=== PATIENT | female | born 1940 | race Caucasian/White ===

== ENCOUNTER → 2016-09-20 | Outpatient (CLI) | payer OTHER, MEDICARE ==
[~2016-09-20] MED LIST: CHOL1TAB12 PO; MULT-506 PO
--- NOTE | 2016-09-20 13:11 | MAMMOGRAPHY REPORT ---
BILATERAL DIGITAL SCREENING MAMMOGRAM WITH CAD: 09/20/2016 CLINICAL HISTORY: Routine screening. Patient has no complaints. TECHNIQUE: Current study was also evaluated with a Computer Aided Detection (CAD) system. Bilatera l CC and MLO views were obtained. COMPARISON: Comparison is made to exams dated: 09/20/2015 mammogram, 05/04/2014 mammogram, 3 mammogram, 04/30/2012 mammogram, 04/26/2011 mammogram, and 04/24/2010 mammogram - [facility]. BREAST COMPOSITION: There are scattered areas of fibroglandular density in both breasts. FINDINGS: No suspicious masses, calcifications, or areas of architectural distortion are noted in e ither breast. There has been no significant interval change compared to prior exams. IMPRESSION: ACR BI-RADS CATEGORY 1: NEGATIVE There is no mammographic evidence of malignancy. A 1 year screening mammogram is recommended. The p atient will receive written notification of the results. Approximately 10% of breast cancers are not detected with mammography. A negative mammographic repor t should not delay biopsy if a clinically suggestive mass is present. Tri Walters M.D. /:09/20/2016 12:32:23 Youth Development Professional: Jojo DÍAZ(Asif)(Miley)(BD), [facility] letter sent: Normal 1/2 BI-RADS Code: ACR BI-RADS Category 1: Negative
== END | disposition home or self-care (01) ==
LOC: C.MAMM 11:58
PROVIDERS: ATTEND Internal Medicine Geriatric Medicine
DX: Z12.31 Encounter for screening mammogram for malignant neoplasm of breast (principal)

== ENCOUNTER → 2016-12-04 | Outpatient (CLI) | payer OTHER, MEDICARE ==
[2016-12-04 17:00] LABS: BASO % 0.3 %; BASO ABS # 0.02 K/uL (0-0.2); COMPLETE YES; EOS % 1.5 %; HEMATOCRIT 38.1 % (37-47); IG% 0.2 %; LYMPH % 27.3 %; LYMPH ABS # 1.63 K/uL (1.2-3.4); MEAN CELL VOLUME 92.3 fL (80-100); MEAN CORPUSCULAR HEMOGLOBIN 29.5 pg (25-34); MEAN PLATELET VOLUME 10.1 fL (7.4-10.4); MONO % 9.2 %; NEUT % 61.5 %; PLATELET COUNT 219 K/uL (130-400); RED BLOOD COUNT 4.13 M/uL (4.2-5.4); URINE APPEARANCE CLEAR (CLEAR); URINE BILIRUBIN NEG (NEG); URINE COLOR YELLOW; URINE EPITHELIAL CELL AUTO >30 /lpf (0-5); URINE NITRITE NEG (NEG); URINE PH 6.5 (4.5-7.5); URINE SPECIFIC GRAVITY 1.017 (1.000-1.030); UROBILINOGEN NEG (NEG); WHITE BLOOD COUNT 5.98 K/uL (4.8-10.8); ZZUR CULT IF INDIC CLEAN CATCH YES
[2016-12-04 17:02] LABS: MANUAL MICROSCOPIC REQUIRED? NO; REVIEW REQ? NO
[2016-12-04 17:11] LABS: ALT/SGPT 18 U/L (12-78); AST/SGOT 15 U/L (15-37); BLOOD UREA NITROGEN 12 mg/dl (7-18); BUN/CREATININE RATIO 14.2 (10-20); CALCIUM 9.4 mg/dl (8.5-10.1); CARBON DIOXIDE 34 mmol/L (21-32); CHLORIDE 108 mmol/L (98-107); CREATININE 0.87 mg/dl (0.60-1.20); GLUCOSE 90 mg/dl (70-99); POTASSIUM 4.3 mmol/L (3.5-5.1); SODIUM 142 mmol/L (136-145)
[2016-12-04 17:26] LABS: ALB/GLOB RATIO 1.1 (0.9-2); ALKALINE PHOSPHATASE 93 U/L (45-117); THYROID STIMULATING HORMONE 0.897 uIu/ml (0.300-4.500)
--- NOTE | 2016-12-10 13:28 | CODING QUERY MEDICAL NECESSITY ---
SUPPORTING DIAGNOSIS NEEDED A supporting diagnosis is required for the test/procedure performed on this patient in order for us to be reimbursed by the patient's insurance. Please provide a supporting diagnosis for the following test/procedure listed below next to the test name along with your signature. *If there is no additional diagnosis for this patient that would support the following test/procedure please document that below next to the test/procedure. Test(s)/Procedure(s) that require a supporting diagnosis: * VITAMIN D, 25-HYDROXY DIAGNOSIS: Provider Signature: Date: Thank you Remedios Trejo [employer] Once completed, please kindly fax back to [phone] For questions please call [phone]
== END | disposition home or self-care (01) ==
LOC: C.LABBC 15:15
PROVIDERS: ATTEND Internal Medicine Geriatric Medicine
DX: Z00.00 Encounter for general adult medical examination without abnormal findings (principal); M19.90 Unspecified osteoarthritis, unspecified site; K21.9 Gastro-esophageal reflux disease without esophagitis; G80.9 Cerebral palsy, unspecified; N28.1 Cyst of kidney, acquired

== ENCOUNTER → 2016-12-13 | Outpatient (CLI) | payer OTHER, MEDICARE | END | disposition home or self-care (01) | LOC: C.LABBC 10:15 | PROVIDERS: ATTEND Internal Medicine Geriatric Medicine | DX: R39.9 Unspecified symptoms and signs involving the genitourinary system (principal) ==

== ENCOUNTER → 2017-07-16 | Outpatient (CLI) | payer OTHER, MEDICARE ==
[2017-07-16 17:03] LABS: BLOOD UREA NITROGEN 18 mg/dl (7-18); CALCIUM 9.6 mg/dl (8.5-10.1); CARBON DIOXIDE 27 mmol/L (21-32); CREATININE 0.73 mg/dl (0.60-1.20); GLUCOSE 81 mg/dl (70-99); POTASSIUM 4.2 mmol/L (3.5-5.1); SODIUM 138 mmol/L (136-145)
[2017-07-16 17:06] LABS: CHOLESTEROL 183 mg/dl (0-200); LDL CHOLESTEROL CALCULATED 86 mg/dl
== END | disposition home or self-care (01) ==
LOC: C.LABBC 13:44
PROVIDERS: ATTEND Physician Assistant Medical
DX: Z00.00 Encounter for general adult medical examination without abnormal findings (principal); E55.9 Vitamin D deficiency, unspecified; R03.0 Elevated blood-pressure reading, without diagnosis of hypertension; K21.9 Gastro-esophageal reflux disease without esophagitis

== ENCOUNTER → 2017-08-14 | Outpatient (CLI) | payer OTHER, MEDICARE | END | disposition home or self-care (01) | LOC: C.MAMM 12:54 | PROVIDERS: ATTEND Internal Medicine Geriatric Medicine | DX: Z00.00 Encounter for general adult medical examination without abnormal findings (principal); M85.851 Other specified disorders of bone density and structure, right thigh; M85.852 Other specified disorders of bone density and structure, left thigh; M19.90 Unspecified osteoarthritis, unspecified site; G80.9 Cerebral palsy, unspecified ==

== ENCOUNTER 2019-08-15 14:53 | Inpatient (IN) ==
[2019-08-15] MEDS ORDERED: SODIUM CHLORIDE 0.9% 500 ML IV ONE (15:22)
[2019-08-15 15:32] LABS: Basophils # (auto) 0.01 K/uL (0-0.2); Basophils % (auto) 0.1 %; Eosinophils # (auto) 0.01 K/uL (0-0.5); Eosinophils % (auto) 0.1 %; Hematocrit (blood only) 41.3 % (37-47); Immature Granulocytes # (auto) 0.01 K/uL (0.00-0.02); Immature Granulocytes % (auto) 0.1 %; Lymphocytes # (auto) 0.97 K/uL (1.2-3.4); Lymphocytes % (auto) 12.4 %; Mean Corpuscular Hemoglobin 30.9 pg (25-34); Mean Corpuscular Hgb Conc 33.9 g/dL (32-36); Mean Corpuscular Volume 91.2 fL (80-100); Mean Platelet Volume 9.6 fL (7.4-10.4); Monocytes # (auto) 0.48 K/uL (0.11-0.59); Monocytes % (auto) 6.2 %; Neutrophils # (auto) 6.32 K/uL (1.4-6.5); Neutrophils % (auto) 81.1 %; Platelet Count 235 K/uL (130-400); RDW Coefficient of Variation 13.9 % (11.5-14.5); RDW Standard Deviation 46.7 fL (36.4-46.3); Red Blood Count 4.53 M/uL (4.2-5.4)
[2019-08-15 15:41] LABS: Albumin Level 4.1 gm/dl (3.4-5.0); BUN Creatinine Ratio 22.4 (10-20); Creatinine Clr Calc Pharmacy 36.7 ml/min; Est GFR (African American) 60.2; Est GFR (Non-African American) 51.9
[2019-08-15 15:49] LABS: Albumin Globulin Ratio 1.1 (0.9-2); Bilirubin,Total 0.6 mg/dl (0.2-1); Globulin 3.8 gm/dl (2.5-4.0); Total Protein 7.9 gm/dl (6.4-8.2); Troponin I 0.065 ng/ml (0-0.045)
[2019-08-15] MEDS: IOVERSOL 100ml IV PRN (15:56)
--- NOTE | 2019-08-15 15:56 | XRay Report ---
XR chest 1V portable CLINICAL HISTORY: epigastric pain COMPARISON STUDY: No previous studies for comparison. FINDINGS: The cardiac and mediastinal contours are normal. There is no evidence of focal pulmonary co nsolidation. There is no evidence of failure. No pleural effusions are visualized.[A line shadow with in the upper right paramediastinal region, likely represents visualization of the esophageal wall thr ough the trachea. There are no ancillary findings to indicate a pneumomediastinum. There is no free i ntraperitoneal air. IMPRESSION: No active disease in the chest. ACT 112: Negative or not required by law. Electronically signed by: Toño Oliva M.D. 08/15/2019 3:55 PM
--- NOTE | 2019-08-15 16:04 | Emergency Department Note ---
History of Present Illness General Chief complaint: GI Assessment Stated complaint: ACID REFLUX, CHEST PAIN Time Seen by Provider: 08/15/19 15:11 Source: patient Mode of arrival: ambulatory Limitations: no limitations History of Present Illness Maximum Pain Intensity: 3 This patient is an 78-year-old female who presents to the emergency department for evaluation of chest pain/burning. Patient reports that her symptoms have been ongoing over the past 2 weeks but have been worsening over the past few days. She states that whenever she eats or drinks anything, she develops a severe burning pain in her chest and upper abdomen. She has very little pain at rest. She states that symptoms occur with anything she has to eat or drink, including water or ice. Over the past 2 days, she has been unable to keep any thing down, including water. She reports vomiting at times. She reports decreased bowel movements, but does state that she has still been moving her bowels. She denies fevers, shortness of breath, cough or urinary symptoms. She reports a history of hysterectomy and denies any other abdominal surgeries. She rates her current discomfort a 3/10. She states that her pain is better when she does not have anything to eat or drink and worsened with any oral intake. She reports a history of cerebral palsy and hypertension, but states she is otherwise very healthy. Home Medications Home Medications Medication Instructions Recorded Confirmed Type cholecalciferol (vitamin D3) 75 3,000 units PO QAM 04/23/18 08/15/19 History mcg (3,000 unit) tablet calcium carbonate [Calcium 500] 1 tab PO QAM 05/15/18 08/15/19 History acetaminophen 500 mg tablet 1,000 mg PO TID PRN tab 03/02/19 08/15/19 History fluocinonide 0.05 % topical cream 1 appln TOP BID PRN 03/02/19 08/15/19 History Allergies Allergy/AdvReac Type Severity Reaction Status Date / Time doxycycline Allergy Unknown dizziness Verified 08/15/19 15:23 Past Med/Surg History Medical History Acute bronchitis Aortic atherosclerosis (Chronic) Arthrosis of multiple sites Bronchitis (05/15/14) Cerebral palsy, unspecified Complex renal cyst (Acute) Contact dermatitis Contact dermatitis (Resolved) COPD (chronic obstructive pulmonary disease) (Chronic) COPD exacerbation Current smoker (Acute) Emphysema of lung (Chronic) Emphysema, unspecified (Acute) Fall Foot contusion Gastroesophageal reflux disease (Acute) Knee contusion Shortness of breath Unspecified essential hypertension (Acute) Upper respiratory infection (Resolved) Vitamin D deficiency (Chronic) Xerotic eczema (Acute) Surgical History History of cataract surgery History of total hysterectomy with bilateral salpingo-oophorectomy (BSO) Family History (Updated 07/30/19 @ 11:08 by Myrna Green PA-C) Sister Stroke Mother Stroke Other Heart disease Prostate cancer Social History Preferred Language: Niuean Communication Ability: Effective Visual Impairment: No Limitations Hearing Ability: Normal Delicatessen Clerk Required: No Beliefs That Will Affect Care: None marital status: / Current Living Situation: Alone current occupational status: retired Feels Safe at Home: Yes Safety Concerns: Feels Safe At This Time Smoking Status: Current every day smoker Tobacco Type: cigarettes ; Cigarettes Per Day: 10 ; Hx Alcohol Use: No Hx Substance Use: No Childhood Exposure to Second-Hand Smoke: No caffeine: Yes Dental Care, Regularly: No Physical Activity Frequency: Does not Exercise Seatbelt Use: always Sunscreen Use: No Review of Systems A total of 10 systems reviewed and were otherwise negative Physical Exam Vital Signs Vital Signs - 24 hr 08/15/19 14:58 08/15/19 17:00 Temperature 37.1 C Temperature Source Oral Pulse Rate 100 H 71 Respiratory Rate 20 20 Respiratory Effort / Characteristics Non-Labored Spontaneous Respiratory Depth Normal Respiratory Pattern Regular Blood Pressure 152/85 H 114/87 Blood Pressure Mean 107 96 Pulse Oximetry 91 94 Oxygen Delivery Method Room Air Room Air Sepsis Recent Fever Within 48 Hours No Sepsis New/Unexplained Change in Mental Status No Sepsis Action Taken by Nursing No Action Required VITALS: Vitals are noted on the nurse's note and reviewed by myself. Vital signs stable. GENERAL: This is an 78-year-old female, in no acute distress, well-developed well-nourished. SKIN: The skin was without rashes. EARS: External auditory canals clear, tympanic membranes pearly sol without erythema or effusion bilaterally. EYES: Pupils equal round and reactive to light and accommodation. NOSE: Patent, turbinates without inflammation or discharge. MOUTH: Mucous membranes moist. Tonsils are not enlarged. Pharynx without erythema or exudate. NECK: Supple without nuchal rigidity. No lymphadenopathy. HEART: Regular rate and rhythm without murmurs gallops or rubs. LUNGS: Clear to auscultation bilaterally without wheezes, rales or rhonchi. No retractions or accessory muscle use. ABDOMEN: Positive bowel sounds x 4. Soft, minimal tenderness to palpation in the epigastric region and right upper quadrant. No guarding or rebound tenderness. NEURO: Patient was alert and oriented to person place and time. Course Consultations Consultation #1: [id number]: [facility]ations Sodium Chloride (Nss 1000ml) 1,000 mls @ 100 mls/hr IV .Q10H ANTONIO Stop: 09/14/19 18:22 Last Admin: 08/15/19 18:29 Dose: 100 mls/hr Documented by: [id number] Ioversol (Optiray 320 100ml) 92 ml IV ONCE PRN PRN Reason: Interaction Checking Stop: 08/19/19 15:55 Last Admin: 08/15/19 15:56 Dose: 92 ml Documented by: [id number] Discontinued Medications Sodium Chloride (Nss) 500 mls @ 999 mls/hr IV .Q31M ONE Stop: 08/15/19 15:52 Last Infusion: 08/15/19 15:57 Dose: 0 mls/hr Documented by: [id number] Admin: 08/15/19 15:26 Dose: 999 mls/hr Documented by: [id number] Medical Decision Making Differential Diagnosis Differential diagnosis includes esophagitis, gastritis, mass/malignancy, pancr eatitis, cholecystitis, ACS, Boerhaave syndrome, among others. Home Medications Current Medication List: was personally reviewed by me Laboratory Data Attestation: I reviewed the patient's lab results. Result diagrams: 08/15/19 15:15 08/15/19 15:15 Lab Results 08/15/19 08/15/19 Range/Units 15:15 15:15 WBC 7.80 (4.8-10.8) K/uL RBC 4.53 (4.2-5.4) M/uL Hgb 14.0 (12.0-16.0) g/dL Hct 41.3 (37-47) % MCV 91.2 (80-100) fL MCH 30.9 (25-34) pg MCHC 33.9 (32-36) g/dL RDW Std Deviation 46.7 H (36.4-46.3) fL RDW Coeff of Ruben 13.9 (11.5-14.5) % Plt Count 235 (130-400) K/uL MPV 9.6 (7.4-10.4) fL Immature Gran % (Auto) 0.1 % Neut % (Auto) 81.1 % Lymph % (Auto) 12.4 % Dixon % (Auto) 6.2 % Eos % (Auto) 0.1 % Baso % (Auto) 0.1 % Immature Gran # (Auto) 0.01 (0.00-0.02) K/uL Neut # (Auto) 6.32 (1.4-6.5) K/uL Lymph # (Auto) 0.97 L (1.2-3.4) K/uL Dixon # (Auto) 0.48 (0.11-0.59) K/uL Eos # (Auto) 0.01 (0-0.5) K/uL Baso # (Auto) 0.01 (0-0.2) K/uL Sodium 139 (136-145) mmol/L Potassium 4.0 (3.5-5.1) mmol/L Chloride 102 (98-107) mmol/L Carbon Dioxide 26 (21-32) mmol/L Anion Gap 11.0 (3-11) BUN 23 H (7-18) mg/dl Creatinine 1.02 (0.6-1.2) mg/dl Est Cr Clr Drug Dosing 36.7 ml/min Est GFR ( Amer) 60.2 Est GFR (Non-Af Amer) 51.9 BUN/Creatinine Ratio 22.4 H (10-20) Glucose 100 H (70-99) mg/dl Calcium 11.0 H (8.5-10.1) mg/dl Total Bilirubin 0.6 (0.2-1) mg/dl AST 22 (15-37) U/L ALT 19 (12-78) U/L Alkaline Phosphatase 90 (45-117) U/L Troponin I 0.065 H* (0-0.045) ng/ml Total Protein 7.9 (6.4-8.2) gm/dl Albumin 4.1 (3.4-5.0) gm/dl Globulin 3.8 (2.5-4.0) gm/dl Albumin/Globulin Ratio 1.1 (0.9-2) Lipase 80 (73-393) U/L Imaging Data Attestation: I personally reviewed and interpreted this imaging study as follows: Radiologist's Impression: XR chest 1V portable CLINICAL HISTORY: epigastric pain COMPARISON STUDY: No previous studies for comparison. FINDINGS: The cardiac and mediastinal contours are normal. There is no evidence of focal pulmonary consolidation. There is no evidence of failure. No pleural effusions are visualized.[A line shadow within the upper right paramediastinal region, likely represents visualization of the esophageal wall through the trachea. There are no ancillary findings to indicate a pneumomediastinum. There is no free intraperitoneal air. IMPRESSION: No active disease in the chest. CT abd pelvis IV con only FINDINGS: Lower chest: There is distended debris-filled distal esophagus. There is esophageal wall thickening at the gastroesophageal junction. GI consultation is recommended in follow-up to evaluate for possible GE junction mass. Liver: The contrast-enhanced liver is normal in size, contour, and attenuation. There is no intrahepatic biliary ductal dilatation. The hepatic veins and portal veins are patent. Gallbladder: Unremarkable. Spleen: Normal in size and attenuation. Pancreas: Unremarkable. Adrenal glands: Unremarkable. Kidneys: The 24 mm right renal cyst. There is no hydronephrosis. No solid renal masses are visualized. Bowel: There are no transition zones to indicate bowel obstruction. There is a lipomatous ileocecal valve. The appendix appears normal. There is no evidence of acute diverticulitis. Peritoneum: There is no intraperitoneal free air or abdominal ascites. Vasculature: The abdominal aorta is normal in course and caliber. Adenopathy: None. Pelvic viscera: The uterus appears surgically absent. 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 Arthritic changes are present within the hips. Degenerative changes are present within the cervical spine. IMPRESSION: 1. Distended debris-filled esophagus 2. Bowel wall thickening at the esophagogastric junction. Endoscopic correlation is recommended in follow-up to evaluate for a possible stricture or mass. ECG Data Attestation: I personally reviewed and interpreted this ECG as follows: Indication: + chest pain Rate (beats per minute): 77 Rhythm: + normal sinus ECG Intervals/blocks: + Normal QRS ECG ST segments: + T-wave inversions (lead III) and + Nonspecific ST abnormalities (questionable ST depression, may be related to baseline artifact) ECG Findings: + PACs Change: no significant change Additional Comments: Additional EKG was performed due to significant baseline artifact on initial EKG. This also shows a normal sinus rhythm. There do not appear to be any acute ST changes. Patient has T wave inversions in lead III which have been present in the past. Blood Pressure Blood Pressure Findings: Elevated blood pressure Blood Pressure Disposition: further management by hospitalist PATRIC Hurtado The patient is an 78-year-old female who presents today complaining of dysphasia which has been progressively worsening over the past 2 weeks. Labs revealed no leukocytosis or anemia. Patient is hypercalcemic with a calcium of 11. Otherwise no electrolyte abnormalities. Patient's troponin mildly elevated at 0.065. EKG shows no acute ischemic changes. Patient has no prior troponin for comparison and this may be a more chronic elevation for her. A CT scan of the abdomen/pelvis was performed and showed evidence of an esophageal mass/stricture causing obstruction. Patient is unable to tolerate anything p.o. and will need to stay in the hospital for further evaluation and endoscopy. The case was discussed with the [facility] hospitalist, Dr. Romo, who agreed to evaluate the patient for further care. human resources team member: Patient was placed on a route vending machine servicer throughout the duration of her stay. human resources team member showed a normal sinus rhythm with heart rate of 70 bpm. The patient was independently evaluated by Dr. Perez, who agreed with my assess ment and treatment plan. Impression & Plan Esophageal abnormality, Dysphagia, Elevated troponin Discharge Plan Visit Data *Final* Discharge Date/Time: 08/15/19 17:41 Chief Complaint: GI Assessment Stated Complaint: ACID REFLUX, CHEST PAIN ED Provider: Lamont Perez ED Midlevel Provider: Brianne Wagner Discharge Problem: Esophageal abnormality, Dysphagia, Elevated troponin Patient Disposition: Admitted As Inpatient Discharge Instructions Interventions: ED Discharge Assessment Last Done: 08/15/19 17:41 Discharge Problem: Dysphagia Qualifiers: Dysphagia type: unspecified Qualified Code(s): R13.10 - Dysphagia, unspecified
--- NOTE | 2019-08-15 16:12 | CT Scan Report ---
CT abd pelvis IV con only CLINICAL HISTORY: epigastric pain, vomiting with any food COMPARISON STUDY: 05/15/2018 TECHNIQUE: A dose lowering technique was utilized adhering to the principles of ALARA. CT DOSE: 265.25 mGy.cm FINDINGS: Lower chest: There is distended debris-filled distal esophagus. There is esophageal wall thickening a t the gastroesophageal junction. GI consultation is recommended in follow-up to evaluate for possible GE junction mass. Liver: The contrast-enhanced liver is normal in size, contour, and attenuation. There is no intrahepa tic biliary ductal dilatation. The hepatic veins and portal veins are patent. Gallbladder: Unremarkable. Spleen: Normal in size and attenuation. Pancreas: Unremarkable. Adrenal glands: Unremarkable. Kidneys: The 24 mm right renal cyst. There is no hydronephrosis. No solid renal masses are visualized . Bowel: There are no transition zones to indicate bowel obstruction. There is a lipomatous ileocecal v alve. The appendix appears normal. There is no evidence of acute diverticulitis. Peritoneum: There is no intraperitoneal free air or abdominal ascites. Vasculature: The abdominal aorta is normal in course and caliber. Adenopathy: None. Pelvic viscera: The uterus appears surgically absent. 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 Arthritic changes are present within the hips. De generative changes are present within the cervical spine. IMPRESSION: 1. Distended debris-filled esophagus 2. Bowel wall thickening at the esophagogastric junction. Endoscopic correlation is recommended in fo llow-up to evaluate for a possible stricture or mass. ACT 112: Negative or not required by law. Electronically signed by: Toño Oliva M.D. 08/15/2019 4:10 PM
--- NOTE | 2019-08-15 16:20 | Emergency Department Note ---
ED Visit Note I did evaluate and examine this patient myself. I did guide management for the patient. I agree with the PA's assessment as discussed. Please see the PAs dictation for further details. The patient has been unable to eat or drink for the past 2 days and complains of burning chest pain whenever she tries to eat or drink something. I did independently review the x-rays, twelve-lead EKG, CT scan and blood work. Her chest x-ray is unremarkable. Twelve-lead EKG shows nonspecific findings with a wavy baseline. No STEMI is present. CT scan shows obstruction of the distal esophagus possibly from a mass. Blood work is remarkable for a slightly elevated troponin. I did discuss the test results with the patient. She will be admitted for further evaluation and endoscopy as well as repeat troponins. .
--- NOTE | 2019-08-15 17:10 | History & Physical Report ---
Date of Service August 15, 2019 Assessment & Plan (1) Esophageal abnormality: Patient has been having progressive dysphagia with both solids and liquids, concerning for a lower esophageal mass. Patient will be admitted. She will be strict n.p.o. Ask GI to evaluate for possible upper endoscopy when able. (2) DEJUAN (acute kidney injury): Patient is likely having mild dehydration due to poor p.o. intake. Will hydrate with normal saline, follow laboratory work. 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 Will check PTH and ionized calcium. Will hydrate and follow labs. Consideration of CT of the chest depending on findings of endoscopy, especially if calcium level does not improve. History of Present Illness Primary Care Provider: Katy Neri PA-C This is an 78-year-old female with past medical history of cerebral palsy, GERD, and COPD that presents today complaining of dysphasia over the past 2 weeks. Patient has some mild baseline dysarthria but is otherwise good historian. Patient's main complaint is that she has been having difficulty with oral intake over the past 2 weeks. She is able to swallow but feels the food gets stuck in her lower epigastric area. She is describing some "mucus "that comes back up but has had no nausea or vomiting. She describes the pain is more of a burning, reflux type pain. She has difficulties both solids and liquids. She tells me she has tried different things but has run into the same problem. She feels this is getting slowly worse, in the past 2 days she has not been able to keep anything down at all. She has had no abdominal pain, fever, chills. She denies any weight loss. She also denies passing any blood either above or below. CT scan of the abdomen as noted below, has significant amount of food debris in the lower esophagus with with concern for mass versus a stricture. Allergies Allergy/AdvReac Type Severity Reaction Status Date / Time doxycycline Allergy Unknown dizziness Verified 08/15/19 15:23 Home Medications Home Medications Medication Instructions Recorded Confirmed Type cholecalciferol (vitamin D3) 75 3,000 units PO QAM 04/23/18 08/15/19 History mcg (3,000 unit) tablet calcium carbonate [Calcium 500] 1 tab PO QAM 05/15/18 08/15/19 History acetaminophen 500 mg tablet 1,000 mg PO TID PRN tab 03/02/19 08/15/19 History fluocinonide 0.05 % topical cream 1 appln TOP BID PRN 03/02/19 08/15/19 History Past Med/Surg History Medical History Acute bronchitis Aortic atherosclerosis (Chronic) Arthrosis of multiple sites Bronchitis (05/15/14) Cerebral palsy, unspecified Complex renal cyst (Acute) Contact dermatitis Contact dermatitis (Resolved) COPD (chronic obstructive pulmonary disease) (Chronic) COPD exacerbation Current smoker (Acute) Emphysema of lung (Chronic) Emphysema, unspecified (Acute) Fall Foot contusion Gastroesophageal reflux disease (Acute) Knee contusion Shortness of breath Unspecified essential hypertension (Acute) Upper respiratory infection (Resolved) Vitamin D deficiency (Chronic) Xerotic eczema (Acute) Surgical History History of cataract surgery History of total hysterectomy with bilateral salpingo-oophorectomy (BSO) Family History (Updated 07/30/19 @ 11:08 by Myrna Green PA-C) Sister Stroke Mother Stroke Other Heart disease Prostate cancer Social History Preferred Language: Czech Communication Ability: Effective Visual Impairment: No Limitations Hearing Ability: Normal marital status: / Current Living Situation: Alone current occupational status: retired Feels Safe at Home: Yes Smoking Status: Current every day smoker Hx Alcohol Use: No Hx Substance Use: No Childhood Exposure to Second-Hand Smoke: No caffeine: Yes Dental Care, Regularly: No Physical Activity Frequency: Does not Exercise Seatbelt Use: always Sunscreen Use: No Review of Systems Constitutional: no fever, no chills, no weakness, no weight loss and no weight gain Eyes: as per Subjective / HPI Respiratory: no cough, no chest congestion, no dyspnea and no dyspnea on exertion Cardiovascular: no chest pain, no orthopnea, no palpitations, no lightheadedness and no edema Gastrointestinal: + heartburn and + dysphagia; no abdominal pain, no nausea, no vomiting, no pain with swallowing, no constipation and no diarrhea/loose stools Genitourinary: no dysuria, no difficulty urinating, no urinary frequency, no urinary hesitancy, no urinary urgency and no flank pain Musculoskeletal: no back pain, no neck pain, no joint pain, no stiffness and no myalgia Integumentary: no rash Neurologic: no gait abnormality, no unsteadiness, no falls and no generalized weakness Physical Exam 2 Constitutional: + frail appearing and cooperative; no acute distress Mild dysarthria at baseline Neck: trachea midline, no thyromegaly Respiratory: normal respiratory effort Auscultation: lungs clear to auscultation bilaterally; no crackles, no rales, no rhonchi and no wheezes Cardiovascular: Rate/Rhythm: regular rate and regular rhythm Heart Sounds: normal S1 and normal S2 Gastrointestinal (Abdomen): Inspection/Auscultation: abdomen normal to inspection Percussion/Palpation: abdomen soft; abdomen nontender, no guarding, abdomen not rigid and no hepatosplenomegaly Skin: no rashes, warm and dry Results & Data Results & Data ([facility]) Vital Signs (Past 12 Hours) Vital Signs Temp Pulse Resp BP Pulse Ox 08/15/19 14:58 37.1 C 100 H 20 152/85 H 91 Laboratory Results WBC 7.8, hemoglobin of 14 with hematocrit of 41.3. Platelets of 235. Sodium 139, potassium 4 chloride 102, CO2 26, BUN of 23, creatinine of 1.02. This is mildly elevated from her previous laboratory work. Glucose is 100. Troponin is 0.065. Calcium is 11. LFTs are normal. UA is normal. Diagnostic Findings CT abd pelvis IV con only CLINICAL HISTORY: epigastric pain, vomiting with any food COMPARISON STUDY: 05/15/2018 TECHNIQUE: A dose lowering technique was utilized adhering to the principles of ALARA. CT DOSE: 265.25 mGy.cm FINDINGS: Lower chest: There is distended debris-filled distal esophagus. There is esophageal wall thickening at the gastroesophageal junction. GI consultation is recommended in follow-up to evaluate for possible GE junction mass. Liver: The contrast-enhanced liver is normal in size, contour, and attenuation. There is no intrahepatic biliary ductal dilatation. The hepatic veins and portal veins are patent. Gallbladder: Unremarkable. Spleen: Normal in size and attenuation. Pancreas: Unremarkable. Adrenal glands: Unremarkable. Kidneys: The 24 mm right renal cyst. There is no hydronephrosis. No solid renal masses are visualized. Bowel: There are no transition zones to indicate bowel obstruction. There is a lipomatous ileocecal valve. The appendix appears normal. There is no evidence of acute diverticulitis. Peritoneum: There is no intraperitoneal free air or abdominal ascites. Vasculature: The abdominal aorta is normal in course and caliber. Adenopathy: None. Pelvic viscera: The uterus appears surgically absent. 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 Arthritic changes are present within the hips. Degenerative changes are present within the cervical spine. IMPRESSION: 1. Distended debris-filled esophagus 2. Bowel wall thickening at the esophagogastric junction. Endoscopic correlation is recommended in follow-up to evaluate for a possible stricture or mass. --- CLINICAL HISTORY: epigastric pain COMPARISON STUDY: No previous studies for comparison. FINDINGS: The cardiac and mediastinal contours are normal. There is no evidence of focal pulmonary consolidation. There is no evidence of failure. No pleural effusions are visualized.[A line shadow within the upper right paramediastinal region, likely represents visualization of the esophageal wall through the trachea. There are no ancillary findings to indicate a pneumomediastinum. There is no free intraperitoneal air. IMPRESSION: No active disease in the chest. PG Care Time/CCT Total # of Minutes Spent Total Time Spent with Patient: Total time spent is greater than 50% in coordination of care (as documented) at patient's floor/unit and/or counseling patient: Coding Level of Care Code 16617 Initial Inpt Care Lvl 3 Diagnoses Esophageal abnormality K22.9 DEJUAN (acute kidney injury) N17.9 Hypercalcemia E83.52
[2019-08-15] MEDS ORDERED: ONDANSETRON INJ 2 MG/ML 2 ML VIAL IV PRN (18:23)
[2019-08-15] MEDS: SODIUM CHLORIDE 0.9% 1000ML 1,000 ML IV SCH (18:29)
[2019-08-15] MEDS: ENOXAPARIN INJ 40 MG/0.4 ML SYR SQ SCH (20:48)
[2019-08-15 22:45] LABS: Appearance Urine Clear (Clear); Bilirubin Urine Negative (Negative); Blood Urine Negative (Negative); Color Urine Yellow; Glucose Urine UA Negative (Negative); Ketones Urine 3+ (Negative); Leukocyte Esterase Urine Negative (Negative); Nitrite Urine Negative (Negative); Protein Urine Negative (Negative); Specific Gravity Urine > 1.045 (1.000-1.030); Urobilinogen Urine Negative (Negative)
[2019-08-16] MEDS: SODIUM CHLORIDE 0.9% 1000ML 1,000 ML IV SCH ×2 (04:59→17:52)
[2019-08-16 06:32] LABS: Basophils # (auto) 0.01 K/uL (0-0.2); Basophils % (auto) 0.2 %; Eosinophils # (auto) 0.08 K/uL (0-0.5); Eosinophils % (auto) 1.3 %; Hemoglobin 11.4 g/dL (12.0-16.0); Immature Granulocytes # (auto) 0.01 K/uL (0.00-0.02); Immature Granulocytes % (auto) 0.2 %; Lymphocytes # (auto) 1.44 K/uL (1.2-3.4); Lymphocytes % (auto) 22.9 %; Mean Corpuscular Hemoglobin 29.8 pg (25-34); Mean Corpuscular Hgb Conc 32.6 g/dL (32-36); Mean Corpuscular Volume 91.6 fL (80-100); Mean Platelet Volume 10.1 fL (7.4-10.4); Monocytes # (auto) 0.46 K/uL (0.11-0.59); Monocytes % (auto) 7.3 %; Neutrophils # (auto) 4.29 K/uL (1.4-6.5); Neutrophils % (auto) 68.1 %; Platelet Count 197 K/uL (130-400); RDW Standard Deviation 46.7 fL (36.4-46.3); Red Blood Count 3.82 M/uL (4.2-5.4); White Blood Count 6.29 K/uL (4.8-10.8)
[2019-08-16 06:55] LABS: BUN Creatinine Ratio 40.2 (10-20); Calcium 9.1 mg/dl (8.5-10.1); Creatinine Clr Calc Pharmacy 61.4 ml/min; Est GFR (African American) 99.2; Est GFR (Non-African American) 85.6; Magnesium 1.9 mg/dl (1.8-2.4); Potassium 3.6 mmol/L (3.5-5.1)
[2019-08-16] MEDS ORDERED: MoRPHine SULFATE 2 MG/ML CARP IV PRN (09:35)
--- NOTE | 2019-08-16 09:39 | Hospitalist Progress Note ---
Date of Service August 16, 2019 Assessment & Plan (1) Esophageal abnormality: Patient has been having progressive dysphagia with both solids and liquids, concerning for a lower esophageal mass. Patient will be admitted. She will be strict n.p.o. Ask GI to evaluate for possible upper endoscopy when able. Will give a low-dose IV morphine for the pain. Start IV Protonix as well. (2) DEJUAN (acute kidney injury): Patient's renal function is much improved, I do note that her glucose is only 64 this morning. I will change to D5 normal saline, reduce rate. Continue to monitor renal function. 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 PTH is normal, and calcium is much improved with hydration. We will continue to monitor. Strict n.p.o., off of calcium supplementation. Admission and Anticipated Discharge Date Admission Date: August 15, 2019 Subjective Patient having occasional, spasm-like pain in the chest. She has been strict n.p.o. The pain does pass fairly readily. She has no other symptoms including fever, chills, nausea, vomiting, or shortness of breath. I was admitted late last night, awaiting GI consultation for possible endoscopy. Physical Exam Constitutional: + frail appearing and cooperative; no acute distress Neck: trachea midline, no thyromegaly Respiratory: normal respiratory effort Auscultation: lungs clear to auscultation bilaterally; no crackles, no rales, no rhonchi and no wheezes Cardiovascular: Rate/Rhythm: regular rate and regular rhythm Heart Sounds: normal S1 and normal S2 Gastrointestinal (Abdomen): Inspection/Auscultation: abdomen normal to inspection Percussion/Palpation: abdomen soft; abdomen nontender, no guarding, abdomen not rigid and no hepatosplenomegaly Skin: no rashes, warm and dry Results & Data Results & Data ([facility]) Vital Signs (Past 12 Hours) Vital Signs Temp Pulse Pulse Resp BP Pulse Ox 08/16/19 08:00 56 L 08/16/19 07:36 37.0 C 61 18 154/72 H 95 08/16/19 04:08 36.5 C 60 18 152/67 H 93 08/16/19 00:36 55 L 08/15/19 23:30 36.9 C 62 18 126/60 93 PG Care Time/CCT Total # of Minutes Spent Total Time Spent with Patient: Total time spent is greater than 50% in coordination of care (as documented) at patient's floor/unit and/or counseling patient: Coding Level of Care Code 80564 Subseq Hosp Care Lvl 2 Diagnoses Esophageal abnormality K22.9 DEJUAN (acute kidney injury) N17.9 Hypercalcemia E83.52
[2019-08-16] MEDS: PANTOprazole 40 MG in SYRINGE 0 ML IV SCH (10:37)
--- NOTE | 2019-08-16 11:33 | Communication Note ---
Date of Service: August 16, 2019 GI brief note: 78 yo female with hx cerebral palsy, GERD and COPD here with progressive dysphagia for 2 weeks to both solids and liquids. Able to swallow her saliva, feels like food gets stuck in her lower chest. No N/v, no recent EGD. CT A/P shows thickening near the GE junction. Has not had barium esophagram nor manometry testing. Significant smoking history is noted, current daily smoker. Notes some burning pains after eating or drinking. Impression: ddx includes achalasia vs. esophagitis vs. other etiology (such as malignancy) Recs: 1.obtain barium esophagram 2.protonix 40 mg BID 3.NPO for now Thank you for allowing me to participate in the care of this patient Daryl Sage MD Gastroenterology
--- NOTE | 2019-08-16 13:19 | Electrocardiogram Report ---
Test Reason : Blood Pressure : / mmHG Vent. Rate : 077 BPM Atrial Rate : 077 BPM P-R Int : 140 ms QRS Dur : 074 ms QT Int : 366 ms P-R-T Axes : 062 000 -45 degrees QTc Int : 414 ms Poor data quality, interpretation may be adversely affected Sinus rhythm Nonspecific ST and T wave abnormality Abnormal ECG When compared with ECG of 17-MAY-2014 19:15, T wave inversion now evident in Inferior leads Confirmed by Enoc Newell ([id number]) on 08/16/2019 1:19:11 PM Referred By: SELF Confirmed By:Enoc Newell
--- NOTE | 2019-08-16 13:21 | Electrocardiogram Report ---
Test Reason : Blood Pressure : / mmHG Vent. Rate : 070 BPM Atrial Rate : 070 BPM P-R Int : 156 ms QRS Dur : 076 ms QT Int : 412 ms P-R-T Axes : 062 017 003 degrees QTc Int : 444 ms Poor data quality, interpretation may be adversely affected Sinus rhythm with Premature atrial complexes Nonspecific ST abnormality Abnormal ECG When compared with ECG of 15-AUG-2019 15:09, Premature atrial complexes are now Present Confirmed by Enoc Newell ([id number]) on 08/16/2019 1:20:52 PM Referred By: REFERRED SELF Confirmed By:Enoc Newell
[2019-08-16] MEDS: ENOXAPARIN INJ 40 MG/0.4 ML SYR SQ SCH (20:30)
--- NOTE | 2019-08-16 21:02 | Communication Note ---
Date of Service: August 16, 2019 Got notified that pt had a BSG of 58 x2. Switched fluids to NSS w/D5W @80cc/hr. Of note, last noted Na level of 142.
[2019-08-16] MEDS: D5W AND NSS 1,000 ML IV SCH (21:25)
[2019-08-17 07:24] LABS: Basophils # (auto) 0.01 K/uL (0-0.2); Basophils % (auto) 0.2 %; Hematocrit (blood only) 32.8 % (37-47); Hemoglobin 10.8 g/dL (12.0-16.0); Immature Granulocytes # (auto) 0.01 K/uL (0.00-0.02); Immature Granulocytes % (auto) 0.2 %; Lymphocytes # (auto) 1.26 K/uL (1.2-3.4); Lymphocytes % (auto) 25.4 %; Mean Corpuscular Hemoglobin 29.9 pg (25-34); Mean Corpuscular Hgb Conc 32.9 g/dL (32-36); Mean Corpuscular Volume 90.9 fL (80-100); Mean Platelet Volume 10.1 fL (7.4-10.4); Monocytes % (auto) 10.1 %; Neutrophils # (auto) 3.08 K/uL (1.4-6.5); Neutrophils % (auto) 62.1 %; Platelet Count 188 K/uL (130-400); RDW Coefficient of Variation 13.7 % (11.5-14.5); RDW Standard Deviation 45.7 fL (36.4-46.3); Red Blood Count 3.61 M/uL (4.2-5.4); White Blood Count 4.96 K/uL (4.8-10.8)
[2019-08-17] MEDS: PANTOprazole 40 MG in SYRINGE 0 ML IV SCH (07:36)
[2019-08-17 07:54] LABS: BUN Creatinine Ratio 31.6 (10-20); Calcium 8.6 mg/dl (8.5-10.1); Creatinine Clr Calc Pharmacy 62.5 ml/min; Est GFR (African American) 99.8; Est GFR (Non-African American) 86.1; Potassium 3.2 mmol/L (3.5-5.1)
[2019-08-17] MEDS: D5W AND NSS 1,000 ML IV SCH (08:47)
--- NOTE | 2019-08-17 10:00 | Fluoroscopy Report ---
FL barium swallow CLINICAL HISTORY: dysphagia, r/o mass COMPARISON STUDY: Abdomen and pelvis CT 08/15/2019. FINDINGS: Total fluoroscopy time is 0.9 minutes. 332 fluoroscopic images submitted. Suboptimal study due to patient motion and patient positioning. The mid to distal esophagus is distended and debris fi lled. There is narrowing and irregularity at the distal esophagus near the gastroesophageal junction. This maintains throughout the examination. IMPRESSION: Irregularity and narrowing at the distal esophagus near the gastroesophageal junction. T his is concerning for an esophageal mass. Endoscopy recommended for further evaluation. This was call ed/faxed to the referring physician following dictation. ACT 112: Positive. There are findings on this exam that require communication between the performing entity and the patient following Patient Test Result Information Act ([place] Act 112) guidelines. Electronically signed by: Sánchez Monzon M.D. 08/17/2019 9:58 AM
--- NOTE | 2019-08-17 10:01 | Hospitalist Progress Note ---
Date of Service August 17, 2019 Assessment & Plan (1) Esophageal abnormality: Patient continue IV morphine and IV Protonix. Await barium swallow study. Further follow-up with GI. (2) DEJUAN (acute kidney injury): Patient is now on D5 normal saline, sodium is 142. Continue to monitor. Renal function is essentially normalized. Repletion of potassium. 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 PTH is normal, and calcium is much improved with hydration. We will continue to monitor. Strict n.p.o., off of calcium supplementation. Admission and Anticipated Discharge Date Admission Date: August 15, 2019 Subjective Patient tells me she has been sleeping poorly secondary to the discomfort from her esophageal issues. GI I did leave a note in the chart yesterday but barium swallow was not ordered and will be performed this morning. Patient was also given low-dose morphine for discomfort. I do see there were issues I last night with her blood sugar and the patient is since been changed over to NSS D5W. Blood sugar this morning is 92. She is hypokalemic. Physical Exam Constitutional: cooperative; no acute distress Neck: trachea midline, no thyromegaly Respiratory: normal respiratory effort Auscultation: lungs clear to auscultation bilaterally; no crackles, no rales, no rhonchi and no wheezes Cardiovascular: Rate/Rhythm: regular rate and regular rhythm Heart Sounds: normal S1 and normal S2 Gastrointestinal (Abdomen): Inspection/Auscultation: abdomen normal to inspection Percussion/Palpation: abdomen soft; abdomen nontender, no guarding, abdomen not rigid and no hepatosplenomegaly Skin: no rashes, warm and dry Results & Data Results & Data ([facility]) Vital Signs (Past 12 Hours) Vital Signs Temp Pulse Pulse Resp BP BP Pulse Ox 08/17/19 08:00 53 L 08/17/19 07:38 36.6 C 58 L 18 162/62 H 94 08/17/19 04:13 36.8 C 58 L 18 176/49 H 94 08/17/19 03:34 48 L 08/16/19 22:52 36.4 C L 56 L 18 176/79 H 96 PG Care Time/CCT Total # of Minutes Spent Total Time Spent with Patient: Total time spent is greater than 50% in coordination of care (as documented) at patient's floor/unit and/or counseling patient: Coding Level of Care Code 16491 Subseq Hosp Care Lvl 2 Diagnoses Esophageal abnormality K22.9 DEJUAN (acute kidney injury) N17.9 Hypercalcemia E83.52
--- NOTE | 2019-08-17 10:34 | Communication Note ---
Date of Service: August 17, 2019 barium swallow results reviewed, concerning for distal esophageal obstruction/malignancy. afebrile, on IVFs. Recs: --plan for EGD tomorrow morning to further evaluate as this is a life-sustaining procedure that would significantly affect clinical management (i.e. diagnosis and management of malignancy, chemotherapy, etc.) --keep NPO post midnight, clear liquid diet today --rest as per primary team Daryl Sage MD Gastroenterology
[2019-08-17] MEDS: POTASSIUM CHLORIDE / WTR 10 MEQ/100 ML PLCT IV SCH ×2 (11:25→12:29)
[2019-08-17] MEDS: ENOXAPARIN INJ 40 MG/0.4 ML SYR SQ SCH (20:07)
[2019-08-18] MEDS: D5W AND NSS 1,000 ML IV SCH ×2 (01:26→14:13)
[2019-08-18 06:56] LABS: Basophils # (auto) 0.01 K/uL (0-0.2); Basophils % (auto) 0.2 %; Eosinophils # (auto) 0.09 K/uL (0-0.5); Eosinophils % (auto) 1.9 %; Hematocrit (blood only) 33.5 % (37-47); Hemoglobin 11.2 g/dL (12.0-16.0); Lymphocytes # (auto) 1.29 K/uL (1.2-3.4); Lymphocytes % (auto) 27.6 %; Mean Corpuscular Hemoglobin 30.2 pg (25-34); Mean Corpuscular Hgb Conc 33.4 g/dL (32-36); Mean Corpuscular Volume 90.3 fL (80-100); Mean Platelet Volume 10.1 fL (7.4-10.4); Monocytes % (auto) 10.7 %; Neutrophils # (auto) 2.79 K/uL (1.4-6.5); Neutrophils % (auto) 59.6 %; Platelet Count 184 K/uL (130-400); RDW Coefficient of Variation 13.7 % (11.5-14.5); RDW Standard Deviation 45.2 fL (36.4-46.3); Red Blood Count 3.71 M/uL (4.2-5.4); White Blood Count 4.68 K/uL (4.8-10.8)
[2019-08-18 07:35] LABS: BUN Creatinine Ratio 12.5 (10-20); Calcium 8.8 mg/dl (8.5-10.1); Creatinine Clr Calc Pharmacy 61.8 ml/min; Est GFR (African American) 101.5; Est GFR (Non-African American) 87.6; Magnesium 1.8 mg/dl (1.8-2.4); Potassium 2.9 mmol/L (3.5-5.1)
--- NOTE | 2019-08-18 07:53 | Anesthesiology Consultation ---
Date of Service August 18, 2019 Assessment & Plan Chart Review Chart Review: Acceptable Risk for Surgery Consults Requested none ASA ASA3 Proposed Anesthesia Anesthesia Type: General (b/u) and MAC Risk / Benefits Reviewed With: PT / POA / Parent / Guardian, Accepts Plan and Informed Consent Obtained History Surgery Operation Date: 08/18/19 09:00 Proposed Procedures p Esophagogastroduodenoscopy Dr. Alona Sage MD Height/Weight Height: 5 ft Weight: 56.1 kg Allergies Allergy/AdvReac Type Severity Reaction Status Date / Time doxycycline Allergy Unknown dizziness Verified 08/15/19 15:23 Medications Home Medications Medication Instructions Recorded Confirmed Last Taken cholecalciferol (vitamin D3) 75 3,000 units PO QAM 04/23/18 08/15/19 Unknown mcg (3,000 unit) tablet calcium carbonate [Calcium 500] 1 tab PO QAM 05/15/18 08/15/19 Unknown acetaminophen 500 mg tablet 1,000 mg PO TID PRN tab 03/02/19 08/15/19 Unknown fluocinonide 0.05 % topical cream 1 appln TOP BID PRN 03/02/19 08/15/19 Unknown Active Medications Generic Name Dose Route Start Last Admin Trade Name Freq PRN Reason Stop Dose Admin Enoxaparin Sodium 40 mg 08/15/19 21:00 08/17/19 20:07 Lovenox SQ 09/14/19 20:59 40 mg Q24H ANTONIO Administration Pantoprazole Sodium 40 mg/ 10 mls @ 5 mls/min 08/16/19 10:00 08/17/19 07:36 Syringe IV 09/15/19 09:59 5 mls/min DAILY ANTONIO Administration Dextrose/Sodium Chloride 1,000 mls @ 80 mls/hr 08/16/19 21:00 08/18/19 01:26 D5w And Nss IV 09/15/19 20:59 80 mls/hr .[id number] ANTONIO Administration Ioversol 92 ml 08/15/19 15:56 08/15/19 15:56 Optiray 320 100ml IV 08/19/19 15:55 92 ml ONCE PRN Administration Interaction Checking Morphine Sulfate 2 mg 08/16/19 09:35 08/16/19 16:34 Morphine Sulfate IV 08/30/19 09:34 2 mg Q6H PRN Administration Pain NPO Date Last Intake of Fluids: 08/17/19 Time Last Intake of Fluids: 21:00 Date Last Intake of Solids: 08/16/19 Time Last Intake of Solids: 00:00 Past Medical History Medical History Acute bronchitis Aortic atherosclerosis (Chronic) Arthrosis of multiple sites Bronchitis (05/15/14) Cerebral palsy, unspecified Complex renal cyst (Acute) Contact dermatitis Contact dermatitis (Resolved) COPD (chronic obstructive pulmonary disease) (Chronic) COPD exacerbation Current smoker (Acute) Emphysema of lung (Chronic) Emphysema, unspecified (Acute) Fall Foot contusion Gastroesophageal reflux disease (Acute) Knee contusion Shortness of breath Unspecified essential hypertension (Acute) Upper respiratory infection (Resolved) Vitamin D deficiency (Chronic) Xerotic eczema (Acute) Exercise / Class Metabolic Activity III < 4 Walking/Shop/Light housework Past Family History Family History Sister Stroke Mother Stroke Other Heart disease Prostate cancer Past Surgical History Surgical History History of cataract surgery History of total hysterectomy with bilateral salpingo-oophorectomy (BSO) Past Anesthesia History No Hx of Anesthesia Complications and No Family Hx of Anesthesia Complications History of PONV No Hx of PONV and No Hx of Motion Sickness Social History Smoking Status: Current every day smoker tobacco type: cigarettes Smoking cigarettes per day: 10 Hx Alcohol Use: No Hx Substance Use: No Physical Exam Vital Signs Last Vital Signs Temp 36.9 C 08/18/19 06:31 Pulse 60 08/18/19 07:13 Resp 19 08/18/19 06:31 BP 164/78 H 08/18/19 06:31 Pulse Ox 94 08/18/19 06:31 ENMT Mouth: + edentulous; no TMJ abnormality Thyromental Distance: > or= 3.5 Finger Breadths Mallampati Class: II Neck normal visual inspection and trachea midline; neck extension not limited Respiratory normal respiratory effort Auscultation: lungs clear to auscultation bilaterally Cardiovascular Rate/Rhythm: regular rate and regular rhythm Heart Sounds: no murmur Musculoskeletal Spine: normal cervical ROM Extremities: full ROM of extremities Neurologic moves all extremities Psychiatric Orientation: alert and oriented x 3 Testing Laboratory Results 08/18/19 06:12 08/18/19 06:12 Urine Color Yellow 08/15/19 22:26 Urine Appearance Clear (Clear) 08/15/19 22: Urine pH 5.0 (4.5-7.5) 08/15/19 22: Ur Specific [place] > 1.045 (1.000-1.030) H 08/15/19 22:26 Urine Protein Negative (Negative) 08/15/19 22: Urine Glucose (UA) Negative (Negative) 08/15/19 22: Urine Ketones 3+ (Negative) H 08/15/19 22:26 Urine Nitrite Negative (Negative) 08/15/19 22: Ur Leukocyte Esterase Negative (Negative) 08/15/19 22: Electrocardiogram Date: 08/15/19 Findings: + NSR @ Sinus rhythm @70bpm with Premature atrial complexes Nonspecific ST abnormality Abnormal ECG
[2019-08-18] MEDS ORDERED: PROPOFOL IV EMULSION 10 MG/ML 20 ML VIAL IV ONE ×2 (08:31→09:31)
[2019-08-18] MEDS ORDERED: LIDOCAINE HCL 2% 2 ML VIAL/AMP(20MG/ML) INFIL ONE ×2 (08:31→09:31)
[2019-08-18] MEDS ORDERED: KETAMINE HCL INJ 50 MG/ML 10 ML VIAL ONE (08:31)
--- NOTE | 2019-08-18 09:03 | Gastrointestinal Consultation ---
Date of Consultation August 18, 2019 Assessment & Plan (1) Dysphagia: Proceed with EGD as this is a life-sustaining procedure that will significantly alter/affect clinical management (i.e. chemo for malignancy/possible surgery if needed; need for timely diagnosis of malignancy) risks/benefits and procedure discussed with patient, who agrees to proceed rest as per primary team History of Present Illness Attending Physician: Agus Romo, DO 78 yo female here with progressive dysphagia to solids and liquids for the last 2 weeks. It has been getting worse, associated with burning epigastric/chest pains after eating/drinking. Never had issues like this before, she has hx copd and is a current active smoker. No significant weight loss noted. CT showed thickening at GE junction. Barium swallow this admission shows narrowing/obstruction at GE junction concerning for malignancy. labs reviewed, notable for anemia. No recent EGD. Allergies Allergy/AdvReac Type Severity Reaction Status Date / Time doxycycline Allergy Unknown dizziness Verified 08/15/19 15:23 Home Medications Home Medications Medication Instructions Recorded Confirmed Type cholecalciferol (vitamin D3) 75 3,000 units PO QAM 04/23/18 08/15/19 History mcg (3,000 unit) tablet calcium carbonate [Calcium 500] 1 tab PO QAM 05/15/18 08/15/19 History acetaminophen 500 mg tablet 1,000 mg PO TID PRN tab 03/02/19 08/15/19 History fluocinonide 0.05 % topical cream 1 appln TOP BID PRN 03/02/19 08/15/19 History Patient History Medical History Acute bronchitis Aortic atherosclerosis (Chronic) Arthrosis of multiple sites Bronchitis (05/15/14) Cerebral palsy, unspecified Complex renal cyst (Acute) Contact dermatitis Contact dermatitis (Resolved) COPD (chronic obstructive pulmonary disease) (Chronic) COPD exacerbation Current smoker (Acute) Emphysema of lung (Chronic) Emphysema, unspecified (Acute) Fall Foot contusion Gastroesophageal reflux disease (Acute) Knee contusion Shortness of breath Unspecified essential hypertension (Acute) Upper respiratory infection (Resolved) Vitamin D deficiency (Chronic) Xerotic eczema (Acute) Surgical History History of cataract surgery History of total hysterectomy with bilateral salpingo-oophorectomy (BSO) Family History Sister Stroke Mother Stroke Other Heart disease Prostate cancer Social History Preferred Language: Malay Communication Ability: Effective Visual Impairment: No Limitations Hearing Ability: Normal Cost Engineer Required: No Beliefs That Will Affect Care: None marital status: / Current Living Situation: Alone current occupational status: retired Feels Safe at Home: Yes Safety Concerns: Feels Safe At This Time Smoking Status: Current every day smoker Tobacco Type: cigarettes ; Cigarettes Per Day: 10 ; Hx Alcohol Use: No Hx Substance Use: No Childhood Exposure to Second-Hand Smoke: No caffeine: Yes Dental Care, Regularly: No Physical Activity Frequency: Does not Exercise Seatbelt Use: always Sunscreen Use: No Review of Systems Constitutional: no fever, no chills and no weight loss Eyes: as per Subjective / HPI Ear, Nose, Mouth, Throat: as per Subjective / HPI Respiratory: no dyspnea and no dyspnea on exertion Cardiovascular: no chest pain and no palpitations Gastrointestinal: as per Subjective / HPI Musculoskeletal: no joint pain and no swelling Integumentary: no rash and no lesions Neurologic: no numbness and no paresthesia Psychiatric: no depression and no anxiety Endocrine: no fatigue Hematologic / Lymphatic: no easy bleeding and no easy bruising Physical Exam Constitutional: WD/WN, vitals as above Eyes: EOM intact bilaterally Neck: normal visual inspection Respiratory: normal respiratory effort, lungs clear to auscultation Cardiovascular: RRR, no murmur, no edema Gastrointestinal (Abdomen): Inspection/Auscultation: abdomen normal to inspection; abdomen not distended Percussion/Palpation: abdomen soft; abdomen nontender and no hepatosplenomegaly Musculoskeletal: Extremities: no cyanosis Gait: normal gait Skin: no rashes, warm and dry Neurologic: moves all extremities Psychiatric: A+Ox3, euthymic affect Results & Data ([facility]) Vital Signs (Past 12 Hours) Vital Signs Temp Pulse Pulse Resp BP BP Pulse Ox 08/18/19 07:13 60 08/18/19 06:31 36.9 C 53 L 19 164/78 H 94 08/18/19 02:37 36.7 C 53 L 19 169/66 H 93 08/18/19 01:43 50 L 04/14/20 22:58 36.8 C 53 L 19 181/73 H 96 PG Care Time/CCT Total # of Minutes Spent Total Time Spent with Patient: Total time spent is greater than 50% in coordination of care (as documented) at patient's floor/unit and/or counseling patient: Coding Level of Care Code 20559 Initial Inpt Care Lvl 3 Diagnoses Dysphagia R13.10 Dysphagia type: unspecified (1) Dysphagia Dysphagia type: unspecified Qualified Code(s): R13.10 - Dysphagia, unspecified
--- NOTE | 2019-08-18 09:51 | GI REPORT ---
Patient Name: Merly Lares Procedure Date: 08/18/2019 8:15 AM Date of : 1940 Admit Type: Inpatient Age: 78 Gender: Female Attending MD: Daryl Sage MD Procedure: Upper GI endoscopy Providers: Daryl Sage MD Referring MD: Katy Neri Indications: Dysphagia, Abnormal CT of the GI tract, Endoscopy to confirm suspected neoplastic lesion of the esophagus seen on previous imaging study, Endoscopy to confirm esophageal obstruction that was demonstrated on previous imaging study Medicines: Monitored Anesthesia Care Complications: No immediate complications. Estimated blood loss: None. Estimated Blood Loss: Estimated blood loss: none. Procedure: Pre-Anesthesia Assessment: - Prior Anticoagulants: The patient has taken no previous anticoagulant or antiplatelet agents. - ASA Grade Assessment: III - A patient with severe systemic disease. After obtaining informed consent, the endoscope was passed under direct vision. Throughout the procedure, the patient's blood pressure, pulse, and oxygen saturations were monitored continuously. The Scope was introduced through the mouth, and advanced to the second part of duodenum. The upper GI endoscopy was accomplished without difficulty. The patient tolerated the procedure well. Findings: Moderate mucosal changes characterized by friability (with contact bleeding), granularity and inflammation were found at the gastroesophageal junction concerning for malignancy. Biopsies were taken with a cold forceps for histology. Estimated blood loss: none. Food was found in the middle third of the esophagus. Removal of food was accomplished via [employer]. No obvious stenosis nor stricture was noted. Localized mild inflammation characterized by erythema was found in the gastric antrum. The duodenal bulb and second portion of the duodenum were normal. Estimated blood loss: none. A medium-sized hiatal hernia was present. Impression: - Friable (with contact bleeding), granular, inflamed mucosa in the esophagus. Biopsied. - Food in the middle third of the esophagus. Removal was successful. - Gastritis. - Normal duodenal bulb and second portion of the duodenum. Recommendation: - [facility]. - NPO today. - Await pathology results. -recommend speech and swallow evaluation, NPO until then --rest as per primary team Daryl Sage MD 08/18/2019 9:51:06 AM This report has been signed electronically. Note Initiated On: 08/18/2019 8:15 AM Number of Addenda: 0 I attest to the content of the Intraoperative Record and orders documented therein, exceptions below {[id number]}
--- NOTE | 2019-08-18 09:53 | Communication Note ---
Date of Service: August 18, 2019 GI brief procedure note EGD Findings: food contents in mid esophagus-distal esophagus, removed. abnormal friable mucosa in the distal esophagus concerning for possible malignancy, biopsied. Recs: NPO await path results supportive care speech and swallow evaluation likely will need esophageal manometry and upper EUS of GE junction as an outpatient if biopsies negative Daryl Sage MD Gastroenterology
--- NOTE | 2019-08-18 10:35 | Hospitalist Progress Note ---
Date of Service August 18, 2019 Assessment & Plan (1) Esophageal abnormality: Patient continue IV morphine and IV Protonix. EGD results as noted by gastroenterology. Is recommending clear liquid diet after a speech evaluation which we will order. Await biopsy results. If patient is intolerant of any food, will need to discuss possible terms of nutrition prior to discharge. (2) DEJUAN (acute kidney injury): Patient is now on D5 normal saline, sodium remained stable at 42. Potassium has dropped to 2.9, even with IV repletion yesterday. Will give further K riders today,change IVF to D5 1/2NS with 20mEq KCl. We will continue to monitor. Magnesium is 1.8. 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 Calcium is now down to 8.8 which is normal. I will continue to monitor with IV fluids. Admission and Anticipated Discharge Date Admission Date: August 15, 2019 Subjective Patient seen and examined, she tells me she continues to have some pain and burning in her esophagus. Later this morning she had endoscopy as previously scheduled. I did speak to the photogrammetric engineer post procedure. He told me that there was significant amount of food debris along with a very friable mucosa at the GE junction only. There is also a significant hiatal hernia. Biopsies were taken and are currently pending. Physical Exam Constitutional: cooperative; no acute distress Neck: trachea midline, no thyromegaly Respiratory: normal respiratory effort Auscultation: lungs clear to auscultation bilaterally; no crackles, no rales, no rhonchi and no wheezes Cardiovascular: Rate/Rhythm: regular rate and regular rhythm Heart Sounds: normal S1 and normal S2 Gastrointestinal (Abdomen): Inspection/Auscultation: abdomen normal to inspection Percussion/Palpation: abdomen soft; abdomen nontender, no guarding, abdomen not rigid and no hepatosplenomegaly Skin: no rashes, warm and dry Results & Data Results & Data ([facility]) Vital Signs (Past 12 Hours) Vital Signs Temp Pulse Pulse Resp BP BP Pulse Ox 08/18/19 10:06 59 L 18 183/72 H 98 08/18/19 09:51 63 18 182/73 H 98 08/18/19 09:36 57 L 22 175/56 H 100 08/18/19 07:13 60 08/18/19 06:31 36.9 C 53 L 19 164/78 H 94 08/18/19 02:37 36.7 C 53 L 19 169/66 H 93 08/18/19 01:43 50 L 08/17/19 22:58 36.8 C 53 L 19 181/73 H 96 PG Care Time/CCT Total # of Minutes Spent Total Time Spent with Patient: Total time spent is greater than 50% in coordination of care (as documented) at patient's floor/unit and/or counseling patient: Coding Level of Care Code 94904 Subseq Hosp Care Lvl 2 Diagnoses Esophageal abnormality K22.9 DEJUAN (acute kidney injury) N17.9 Hypercalcemia E83.52
[2019-08-18] MEDS: PANTOprazole 40 MG in SYRINGE 0 ML IV SCH (10:44)
[2019-08-18] MEDS: D5W AND 1/2NSS + 20MEQ KCL 20 MEQ/1,000 ML BAG IV SCH ×2 (11:23→20:50)
--- NOTE | 2019-08-18 11:34 | Anesthesiology Progress Note ---
Date of Service August 18, 2019 Anesthesia Post Procedure Vital Signs Vital Signs: Temp Pulse Pulse Resp BP BP Pulse Ox 08/18/19 11:05 36.6 C 51 L 16 175/73 H 98 08/18/19 10:35 36.6 C 50 L 18 180/67 H 92 08/18/19 10:06 59 L 18 183/72 H 98 08/18/19 09:51 63 18 182/73 H 98 08/18/19 09:36 57 L 22 175/56 H 100 08/18/19 07:13 60 08/18/19 06:31 36.9 C 53 L 19 164/78 H 94 08/18/19 02:37 36.7 C 53 L 19 169/66 H 93 08/18/19 01:43 50 L 08/17/19 22:58 36.8 C 53 L 19 181/73 H 96 08/17/19 19:17 36.8 C 59 L 18 154/79 H 95 08/17/19 16:38 56 L 08/17/19 15:42 36.4 C L 56 L 18 144/76 H 94 08/17/19 12:00 62 08/17/19 11:45 36.8 C 58 L 18 179/65 H 96 Transfer of Care Handoff Completed per policy Notes Mental Status: alert / awake / arousable and participated in evaluation Nausea / Vomiting: adequately controlled Pain: adequately controlled Airway Patency, RR, SpO2: stable & adequate BP & HR: stable & adequate Hydration State: stable & adequate Anesthetic Complications: no major complications apparent and Pt Satisfied with anesthetic care
[2019-08-18] MEDS ORDERED: POTASSIUM CHLORIDE / WTR 10 MEQ/100 ML PLCT IV SCH (12:30)
[2019-08-18] MEDS ORDERED: Nursing to Pharmacy Communication ONE (13:18)
[2019-08-18] MEDS ORDERED: POTASSIUM CHLORIDE 20 MEQ/15 ML UDC PO SCH (13:45)
[2019-08-18] MEDS: ENOXAPARIN INJ 40 MG/0.4 ML SYR SQ SCH (20:50)
[2019-08-19] MEDS: D5W AND 1/2NSS + 20MEQ KCL 20 MEQ/1,000 ML BAG IV SCH ×2 (06:56→17:31)
[2019-08-19 07:00] LABS: Basophils # (auto) 0.02 K/uL (0-0.2); Basophils % (auto) 0.4 %; Eosinophils # (auto) 0.12 K/uL (0-0.5); Eosinophils % (auto) 2.5 %; Hematocrit (blood only) 32.6 % (37-47); Immature Granulocytes # (auto) 0.01 K/uL (0.00-0.02); Immature Granulocytes % (auto) 0.2 %; Lymphocytes # (auto) 1.59 K/uL (1.2-3.4); Lymphocytes % (auto) 32.9 %; Mean Corpuscular Hemoglobin 30.6 pg (25-34); Mean Corpuscular Hgb Conc 33.7 g/dL (32-36); Mean Corpuscular Volume 90.8 fL (80-100); Mean Platelet Volume 10.1 fL (7.4-10.4); Monocytes # (auto) 0.53 K/uL (0.11-0.59); Neutrophils # (auto) 2.57 K/uL (1.4-6.5); Platelet Count 169 K/uL (130-400); RDW Coefficient of Variation 13.9 % (11.5-14.5); RDW Standard Deviation 46.6 fL (36.4-46.3); Red Blood Count 3.59 M/uL (4.2-5.4); White Blood Count 4.84 K/uL (4.8-10.8)
[2019-08-19 07:36] LABS: BUN Creatinine Ratio 5.9 (10-20); Calcium 8.6 mg/dl (8.5-10.1); Creatinine Clr Calc Pharmacy 58.6 ml/min; Est GFR (African American) 99.8; Est GFR (Non-African American) 86.1; Potassium 3.5 mmol/L (3.5-5.1)
[2019-08-19] MEDS: PANTOprazole 40 MG in SYRINGE 0 ML IV SCH (07:55)
--- NOTE | 2019-08-19 11:44 | Hospitalist Progress Note ---
Date of Service August 19, 2019 Assessment & Plan (1) Esophageal abnormality: EGD concerning for cancer. path pending. CT chest for staging. doing well with clear liquids - considering advance to full liquids for more nutrients/calories but will wait on further input from GI and speech to ensure there's no reason to remain at clears only (liquids certainly given esophageal mass and prior dysphagia, but would want to advance if possible) (2) DEJUAN (acute kidney injury): improved. continue IV fluids until PO intake clearly adequate to maintain hydration hypokalemia - improved w repletion (3) Hypercalcemia: highly likely to have been dehydration and calcium supplementation - fortunately has normalized. certainly w presumed new dx cancer this would be concerning - BUT no evidence of bony mets thus far. waiting on above noted CT (4) Current smoker: (5) DVT prophylaxis: lovenox (6) Discharge planning issues: still acute care while working on dx and nutrition; anticipate home once able Admission and Anticipated Discharge Date Admission Date: August 15, 2019 Subjective feeling better than yesterday. notes that she ate peanut butter and crackers last night (apparently of her own volition?) and that really made her feel lousy for a while - burning/mucous/chest discomfort --> but then after several hours that has felt better. currently none. on clears and tolerating well - with clears no chest discomfort no sob no mucous etc. relates HPI from admission of dysphagia and weight loss (~15-20lbs) no sob. no f/c/s. understandably anxious about her current situation but no other current complaints. Review of Systems Review of Systems: All systems reviewed & are unremarkable except as noted in HPI & below Physical Exam Physical Exam: gen aao pleasant nad heent nc at mmm speech somewhat dysarthric breathing unlabored no accessory muscles good effort skin no rashes no pallor or icterus neuro no focal deficits noted Results & Data Results & Data ([facility]) Vital Signs (Past 12 Hours) Vital Signs Temp Pulse Pulse Resp BP Pulse Ox 08/19/19 10:58 97.7 F 57 L 16 112/70 95 08/19/19 06:59 98.2 F 66 20 169/75 H 96 08/19/19 06:58 55 L 08/19/19 04:20 98.2 F 62 19 151/70 H 95 08/19/19 00:15 61 PG Care Time/CCT Total # of Minutes Spent Total Time Spent with Patient: Total time spent is greater than 50% in coordination of care (as documented) at patient's floor/unit and/or counseling patient: Coding Level of Care Code 57372 Subseq Hosp Care Lvl 3 Diagnoses Esophageal abnormality K22.9 DEJUAN (acute kidney injury) N17.9 Hypercalcemia E83.52 Current smoker F17.200 DVT prophylaxis Z29.9 Discharge planning issues Z02.9
[2019-08-19] MEDS: IOVERSOL 100ml IV PRN (13:07)
--- NOTE | 2019-08-19 13:30 | CT Scan Report ---
CHEST CT WITH CONTRAST CT DOSE: 368.22 mGy.cm HISTORY: esophageal mass, eval for ?adenopathy TECHNIQUE: Multiaxial CT images of the chest were performed following the intravenous administration of contrast. A dose lowering technique was utilized adhering to the principles of ALARA. COMPARISON: Abdomen and pelvis CT 08/15/2019. FINDINGS: There is again noted a distended and debris filled esophagus, unchanged. There is abnormal thickening at the distal esophagus/gastroesophageal junction. This is concerning for an esophageal ma ss. There is a single prominent enhancing gastroesophageal lymph node on image 246 measuring 9 x 6 mm . The visualized liver and spleen are unremarkable. No hilar lymphadenopathy. A few prominent right p aratracheal and subcarinal lymph nodes are noted. Dominant paratracheal lymph node measures 8 mm in s hort axis diameter. Therefore, these do not meet CT criteria for pathologic involvement at this time. No axillary lymphadenopathy. No pleural or pericardial effusions. The mediastinal vascular structure s are within normal limits. No suspicious lytic or blastic osseous lesions. No pneumothorax. The cent ral airways are patent. Punctate calcified granuloma within the right upper lobe posteriorly. No foca l lung consolidations to suggest pneumonia. No suspicious pulmonary nodules. IMPRESSION: 1. Abnormal thickening at the distal esophagus/gastroesophageal junction resulting in a distended and debris filled esophagus. This remains unchanged and is concerning for an esophageal mass. 2. A single prominent gastroesophageal lymph node measuring 9 x 6 mm. Follow-up PET/CT should be cons idered to assess for metastatic disease. ACT 112: Negative or not required by law. Electronically signed by: Sánchez Monzon M.D. 08/19/2019 1:29 PM
[2019-08-19] MEDS: ENOXAPARIN INJ 40 MG/0.4 ML SYR SQ SCH (21:14)
[2019-08-20] MEDS: D5W AND 1/2NSS + 20MEQ KCL 20 MEQ/1,000 ML BAG IV SCH ×2 (04:13→14:31)
[2019-08-20] MEDS: PANTOprazole 40 MG TAB PO SCH (08:22)
--- NOTE | 2019-08-20 11:15 | Communication Note ---
Date of Service: August 20, 2019 GI brief note: CT chest shows esoph thickening and findings concerning for malignancy. prominent GE junction lymph node is noted as well. pending path results from EGD wtih biopsies, also pending PET scan and thoracic surgery eval. Pending speech and swallow eval. currently on clear liquid diet. Impression: likely esophageal malignancy vs. metastasis Recs: --continue clears for now until evaluated by speech and swallow team; would strongly caution against solid food until definitive diagnosis is reached regarding possible malignancy (i.e. path and PET CT results are back) --f/u path results from EGD --agree with obtaining PET scan and thoracic surgery eval --will likely need upper EUS to assist in staging for malignancy if confirmed, can be done inpatient vs. outpatient Daryl Sage MD Gastroenterology
--- NOTE | 2019-08-20 13:16 | Consultation Report ---
DATE OF CONSULTATION: 08/20/2019 REASON FOR CONSULTATION: Adenocarcinoma of GE junction. HISTORY OF PRESENT ILLNESS: This is a very sweet 78-year-old female who lives alone and is very hard of hearing. The patient presented with a food impaction, underwent an endoscopy by Dr. Daryl Sage. This was performed 2 days ago on 08/18/2019 and the patient interestingly enough had a mid esophageal food bolus, but her esophagus looked good in this area. Unfortunately, it appears that she has a mass and hold up of dye at her GE junction. She is feeling much better since the food bolus was removed. She is tolerating liquids very well. She also has no pain now. I was asked to evaluate her to assess her as a surgical candidate. The patient states that she has not really had trouble except for the last 3 weeks or so with swallowing. She denied really any weight changes. She states that she has had some pain with the food impaction, but now this is improved. She is very pleased that she is able to swallow liquids now. She denies hematemesis or vomiting. PAST MEDICAL HISTORY: 1. Decreased hearing acuity. 2. Chronic obstructive pulmonary disease. 3. History of cigarette smoking. 4. Gastroesophageal reflux disease. 5. Hypertension. 6. Vitamin D deficiency. PAST SURGICAL HISTORY: 1. 2, para 2, abortus 0. 2. MARQUEZ-BSO. 3. Cataract extraction. MEDICATIONS: There are very few. ALLERGIES: DOXYCYCLINE CAUSES DIZZINESS. SOCIAL HISTORY: The patient is . She lives alone. She has 2 sons and 3 grandchildren. FAMILY MEDICAL HISTORY: The patient's mother and her sister suffered cerebrovascular accidents. There is also a history of prostate cancer on her father's side of the family with coronary artery disease. REVIEW OF SYSTEMS: The patient denies weight loss. She has had no productive cough, no fevers and no palpitations or chest pain, although she did have some epigastric pain until her food bolus was removed. She does have a history of reflux. She denied nausea, vomiting, or diarrhea. She had no hematemesis or hemoptysis. She denies palpitations. She has no symptoms. She denies any peripheral edema or joint effusions. Other than her decreased hearing acuity, which is chronic, she has had no neurologic symptoms. PHYSICAL EXAMINATION: GENERAL: This is a short female who is awake, alert and oriented. She is quite hard of hearing. HEENT: Her extraocular movements are intact. Sclerae are anicteric. Her tongue is a bit dark, but she has no obvious lesions and she is edentulous. NECK: Supple. She has no cervical or supraclavicular lymphadenopathy or neck vein distention. She is actually moving air well without wheezing or rhonchi. HEART: She has a regular rate and rhythm of her heart. ABDOMEN: Soft, nontender and I really do not feel any masses or tenderness. EXTREMITIES: She has no peripheral edema. She does have palpable posterior tibialis pulses. She has no joint effusions. NEUROLOGIC: She is intact, except she is quite hard of hearing. ASSESSMENT AND PLAN: Adenocarcinoma of gastroesophageal junction. I have discussed this case with Dr. Franki Mix. The patient needs to be worked up with an endoscopic ultrasound for staging as well as the PET scan. I would also have cardiology, radiation oncology and pulmonary evaluate for the suitability for trimodality therapy. This 78-year-old female who lives alone, would have a tough time tolerating trimodality therapy with radiation, chemotherapy followed by surgery. I would have her evaluated by the oncologist. If she responds well to chemotherapy and radiation, then there is a possibility she would be a candidate, although I think that her operative risk after chemotherapy and radiation would be significant. [facility]
--- NOTE | 2019-08-20 17:42 | Hospitalist Progress Note ---
Date of Service August 20, 2019 Assessment & Plan (1) Esophageal abnormality: adenocarcinoma -PET being scheduled for adam as outpt -EUS / Bx node on 08/22 -thoracic surgery input appreciated - will ask for cardio and pulm evals if she appears to be surgical candidate as it relates to the cancer (ie if node benign, PET not concerning beyond esophagus) (2) Malnutrition: appears to be acute moderate to severe protein/calorie as evidenced by 15-20lbs weight loss in short order. -caused both by cancer itself but also (probably moreso) by dysphagia from the malignancy -full liquid diet; await further input from apprentice lineman third step but appears that she would probably do well on ~1300 cassi/day, probably ~2-3L fluid intake - likely quite feasible (3) DEJUAN (acute kidney injury): improved. will cautiously stop IVF hypokalemia - improved w repletion (4) Hypercalcemia: highly likely to have been dehydration and calcium supplementation - fortunately has normalized. certainly w presumed new dx cancer this would be concerning - BUT no evidence of bony mets thus far. waiting on above noted CT (5) Current smoker: hasn't smoked since admission, encouraged to stop (6) DVT prophylaxis: lovenox (7) Discharge planning issues: still acute care while working on dx and nutrition; anticipate home once able - but lives at home alone, family would like her to live with them at least in the early part of this - which seems quite reasonable for her to have more of a support system right now. Admission and Anticipated Discharge Date Admission Date: August 15, 2019 Subjective feeling ok - just stressed and overwhelmed. discussed current w/u extensively and discussed probable treatment options but wtih the abstractor that right now things are very much "work in progress" pending further w/u. discussed that we would also be here to try to guide her through treatment options once plans become more clear. d/w thoracic surgery - input appreciated called ARYA rinaldi [phone] - >20mins call updated and answering all questions to the best of my ability pt tolerating full liquid diet well no pain - except for one very brief episode of pain that went away quickly - nothing really sticking or mucous like before. otherwise no new issues or complaints. Review of Systems Review of Systems: All systems reviewed & are unremarkable except as noted in HPI & below Physical Exam Physical Exam: gen aao pleasant nad heent nc at mmm breathing unlabored no accessory muscles good effort skin no rashes no pallor or ictreus neuro no focal deficits except chronic dysarthria Results & Data Results & Data ([facility]) Vital Signs (Past 12 Hours) Vital Signs Temp Pulse Pulse Resp BP Pulse Ox 08/20/19 15:51 98.2 F 58 L 18 133/55 L 95 08/20/19 15:40 60 08/20/19 12:00 97.5 F L 60 18 126/73 97 08/20/19 08:00 52 L 08/20/19 07:28 97.2 F L 51 L 20 145/78 H 92 08/20/19 06:02 52 L PG Care Time/CCT Total # of Minutes Spent Total Time Spent with Patient: Total time spent is greater than 50% in coordination of care (as documented) at patient's floor/unit and/or counseling patient: Coding Level of Care Code 32356 Subseq Hosp Care Lvl 3 Diagnoses Esophageal abnormality K22.9 Malnutrition E46 DEJUAN (acute kidney injury) N17.9 Hypercalcemia E83.52 Current smoker F17.200 DVT prophylaxis Z29.9 Discharge planning issues Z02.9
[2019-08-20] MEDS: ENOXAPARIN INJ 40 MG/0.4 ML SYR SQ SCH (20:28)
[2019-08-21] MEDS: PANTOprazole 40 MG TAB PO SCH (07:44)
[2019-08-21 08:24] LABS: Creatinine Clr Calc Pharmacy 58.9 ml/min; Est GFR (African American) 99.8; Est GFR (Non-African American) 86.1
--- NOTE | 2019-08-21 08:44 | Gastroenterology Progress Note ---
Date of Service August 21, 2019 Assessment & Plan Admission and Anticipated Discharge Date Admission Date: August 15, 2019 Patient with esophageal adenocarcinoma likely arising from the gastroesophageal junction. Upper endoscopy with esophageal stent placement has been requested in addition to endoscopic ultrasound. We are planning to proceed with these examinations on Friday. Recommendations Liquid only diet N.p.o. on Friday night EGD with EUS planned for Friday Please call with any questions or concerns over the weekend Subjective The patient notes she is able to swallow liquids without much difficulty. She notes that she has trouble with any foods that contain consistency such as yogurts or solid material. On discussion she has had symptoms which have been ongoing for many months and was recently found to have evidence of esophageal adenocarcinoma by . Upper endoscopy with esophageal stent placement and endoscopic ultrasound has been requested by her regular GI provider. Review of Systems Constitutional: + malaise; no sweats Eyes: no diplopia Ear, Nose, Mouth, Throat: no foul smell and no facial pain Respiratory: no hemoptysis Cardiovascular: no chest pain with activity Gastrointestinal: no abdominal pain, no bloating, no nausea and no pain with swallowing Physical Exam Constitutional: WD/WN, vitals as above Neck: trachea midline, no thyromegaly Respiratory: no respiratory distress and no labored breathing Cardiovascular: Rate/Rhythm: regular rate Gastrointestinal (Abdomen): Inspection/Auscultation: abdomen normal to inspection Results & Data ([facility]) Vital Signs (Past 12 Hours) Vital Signs Temp Pulse Pulse Resp BP BP Pulse Ox 08/21/19 07:19 36.5 C 61 18 126/64 95 08/21/19 03:10 36.6 C 54 L 20 162/73 H 92 08/20/19 23:46 61 08/20/19 22:46 37.0 C 60 17 155/71 H 96 Laboratory Results Laboratory Results - last 24 hr 08/21/19 07:34 Creatinine 0.60 Est Cr Clr Drug Dosing 58.9 Est GFR ( Amer) 99.8 Est GFR (Non-Af Amer) 86.1 Case #: [id number] Collected: 08/18/19 Received: 08/18/19 Copies To Daryl Sage MD, Kenneth A., DO FINAL DIAGNOSIS A. ESOPHAGUS, GASTROESOPHAGEAL JUNCTION, BIOPSIES: 1. ADENOCARCINOMA. SEE MICROSCOPIC DESCRIPTION. 2. ACTIVE ESOPHAGITIS. 3. DEBRIS CONSISTENT WITH FOOD MATERIAL. B. ESOPHAGUS, MASS, BIOPSIES: 1. FRAGMENTS OF DEBRIS CONSISTENT WITH FOOD MATERIAL. 2. NO INFLAMMATORY OR NEOPLASTIC PROCESS IDENTIFIED. SEE MICROSCOPIC DESCRIPT Diagnostic Findings CT abd pelvis IV con only CLINICAL HISTORY: epigastric pain, vomiting with any food COMPARISON STUDY: 05/15/2018 TECHNIQUE: A dose lowering technique was utilized adhering to the principles of ALARA. CT DOSE: 265.25 mGy.cm FINDINGS: Lower chest: There is distended debris-filled distal esophagus. There is esophageal wall thickening at the gastroesophageal junction. GI consultation is recommended in follow-up to evaluate for possible GE junction mass. Liver: The contrast-enhanced liver is normal in size, contour, and attenuation. There is no intrahepatic biliary ductal dilatation. The hepatic veins and portal veins are patent. Gallbladder: Unremarkable. Spleen: Normal in size and attenuation. Pancreas: Unremarkable. Adrenal glands: Unremarkable. Kidneys: The 24 mm right renal cyst. There is no hydronephrosis. No solid renal masses are visualized. Bowel: There are no transition zones to indicate bowel obstruction. There is a lipomatous ileocecal valve. The appendix appears normal. There is no evidence of acute diverticulitis. Peritoneum: There is no intraperitoneal free air or abdominal ascites. Vasculature: The abdominal aorta is normal in course and caliber. Adenopathy: None. Pelvic viscera: The uterus appears surgically absent. 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 Arthritic changes are present within the hips. Degenerative changes are present within the cervical spine. IMPRESSION: 1. Distended debris-filled esophagus 2. Bowel wall thickening at the esophagogastric junction. Endoscopic correlation is recommended in follow-up to evaluate for a possible stricture or mass. CHEST CT WITH CONTRAST CT DOSE: 368.22 mGy.cm HISTORY: esophageal mass, eval for ?adenopathy TECHNIQUE: Multiaxial CT images of the chest were performed following the int ravenous administration of contrast. A dose lowering technique was utilized adhering to the principles of ALARA. COMPARISON: Abdomen and pelvis CT 08/15/2019. FINDINGS: There is again noted a distended and debris filled esophagus, unchanged. There is abnormal thickening at the distal esophagus/gastroesophageal junction. This is concerning for an esophageal mass. There is a single prominent enhancing gastroesophageal lymph node on image 246 measuring 9 x 6 mm. The visualized liver and spleen are unremarkable. No hilar lymphadenopathy. A few prominent right paratracheal and subcarinal lymph nodes are noted. Dominant paratracheal lymph node measures 8 mm in short axis diameter. Therefore, these do not meet CT criteria for pathologic involvement at this time. No axillary lymphadenopathy. No pleural or pericardial effusions. The mediastinal vascular structures are within normal limits. No suspicious lytic or blastic osseous lesions. No pneumothorax. The central airways are patent. Punctate calcified granuloma within the right upper lobe posteriorly. No focal lung consolidations to suggest pneumonia. No suspicious pulmonary nodules. IMPRESSION: 1. Abnormal thickening at the distal esophagus/gastroesophageal junction resulting in a distended and debris filled esophagus. This remains unchanged and is concerning for an esophageal mass. 2. A single prominent gastroesophageal lymph node measuring 9 x 6 mm. Follow-up PET/CT should be considered to assess for metastatic disease.
--- NOTE | 2019-08-21 11:50 | Progress Notes ---
DATE: 08/21/2019 The patient is sitting up today. She had some difficulty swallowing today. She stated she swallowed some liquids and a soft diet and regurgitated it back. She had some mild midsternal chest pain. We discussed the fact that this is a cancer. She was asking about surgery; however, she needs to be worked up more. On 08/23/2019, Dr. Pedro Luis Spring is going to perform an endoscopic ultrasound and biopsy the lymph nodes for staging and to assess the tumor stage. I doubt this patient is a candidate for a straight up surgery; however, we will get the PET scan and the endoscopic ultrasound and know for sure.
--- NOTE | 2019-08-21 14:02 | Hospitalist Progress Note ---
Date of Service August 21, 2019 Assessment & Plan (1) Esophageal abnormality: adenocarcinoma -PET being scheduled for adam as outpt -EUS / Bx node on 08/22 (appears esophageal stenting will be attempted then as well - which would hopefully help w dysphagia) -thoracic surgery input appreciated - will ask for cardio and pulm evals if she appears to be surgical candidate as it relates to the cancer (ie if node benign, PET not concerning beyond esophagus) - for now await more information (2) Malnutrition: appears to be acute moderate to severe protein/calorie as evidenced by 15- 20lbs weight loss in short order. -caused both by cancer itself but also (probably moreso) by dysphagia from the malignancy -full liquid diet; 3093-3156 cassi/day goal, ~60oz PO fluids. continue to follow. depending on success of stenting friday maybe she'll be able to do more than that as well (3) DEJUAN (acute kidney injury): improved. IVF on hold hypokalemia - improved w repletion (4) Hypercalcemia: highly likely to have been dehydration and calcium supplementation - fortunately has normalized. certainly w presumed new dx cancer this would be concerning - BUT no evidence of bony mets. (5) Current smoker: hasn't smoked since admission, encouraged to stop (6) DVT prophylaxis: lovenox (7) Discharge planning issues: EUS friday - possibly home after that (encouraged her to consider home w family rather than alone - which is what family wants - she does not want to be a burden on them); PET later next week, heme/onc hopefully early the following (~08/29) to then be able to meaningfully discuss options (and if surgery an option, then would have expedited cardio and pulmonary eval). d/w oncology over the phone to update them on her situation so they are aware when meeting her in a week or so. Admission and Anticipated Discharge Date Admission Date: August 15, 2019 Subjective had a little bit of pain/sticking and mucous with a milkshake last night - but better today. tolerating full liquid diet today no problems. no other acute complaints. concerned about her dx and possible treatment vs if it's better to leave it alone - discussed that right now it is too soon for her to know what all her options are - and as hard as it is to be patient while waiting on more information, getting more will really help her discern options more meaningfully. she expressed understanding of this. customer support consultant input greatly appreciated Review of Systems Review of Systems: All systems reviewed & are unremarkable except as noted in HPI & below Physical Exam Physical Exam: gen aao pleasantly anxious but appropriately so. no distress. heent nc at mmm breathing unlabord no accessory muscles good effort skin no rashes no pallor or icterus Results & Data Results & Data ([facility]) Vital Signs (Past 12 Hours) Vital Signs Temp Pulse Resp BP Pulse Ox 08/21/19 11:16 98.2 F 56 L 18 154/78 H 94 08/21/19 07:19 97.7 F 61 18 126/64 95 08/21/19 03:10 97.9 F 54 L 20 162/73 H 92 PG Care Time/CCT Total # of Minutes Spent Total Time Spent with Patient: Total time spent is greater than 50% in coordination of care (as documented) at patient's floor/unit and/or counseling patient: Coding Level of Care Code 71250 Subseq Hosp Care Lvl 3 Diagnoses Esophageal abnormality K22.9 Malnutrition E46 DEJUAN (acute kidney injury) N17.9 Hypercalcemia E83.52 Current smoker F17.200 DVT prophylaxis Z29.9 Discharge planning issues Z02.9
[2019-08-21] MEDS ORDERED: POLYETHYLENE (MIRALAX) 17 GM PACK PO PRN (21:09)
[2019-08-21] MEDS: ENOXAPARIN INJ 40 MG/0.4 ML SYR SQ SCH (23:01)
[2019-08-22] MEDS: PANTOprazole 40 MG TAB PO SCH (08:23)
--- NOTE | 2019-08-22 12:51 | Hospitalist Progress Note ---
Date of Service August 22, 2019 Assessment & Plan (1) Esophageal abnormality: adenocarcinoma -PET scheduled for adam as outpt -information sent to cancer center and i personally discussed case w dr zamora -EUS / Bx node / hopeful stenting on 08/22 -thoracic surgery input appreciated - will ask for cardio and pulm evals if she appears to be surgical candidate as it relates to the cancer (ie if node benign, PET not concerning beyond esophagus) - for now await more information (2) Malnutrition: appears to be acute moderate to severe protein/calorie as evidenced by 15- 20lbs weight loss in short order. -caused both by cancer itself but also (probably moreso) by dysphagia from the malignancy -full liquid diet; 3287-3882 cassi/day goal, ~60oz PO fluids. doing pretty well overall on liquid diet. depending on success of stenting friday maybe she'll be able to do more than that as well (3) DEJUAN (acute kidney injury): improved. subsisting on PO intake alone hypokalemia - improved w repletion (4) Hypercalcemia: highly likely to have been dehydration and calcium supplementation - fortunately has normalized. certainly w presumed new dx cancer this would be concerning - BUT no evidence of bony mets. (5) Current smoker: obviously hasn't smoked since admission, encouraged to stop (6) DVT prophylaxis: lovenox (7) Discharge planning issues: EUS and stenting tomorrow - depending on how long GI wants to observe after procedure, hopefully home late on 08/22 or early 08/24. PET scheduled for 08/31 (unless it can be moved up), heme/onc appt being scheduled. from there depending on PET and bx if she is a surgical candidate then cardio and pulmonary for preop evals and then thoracic surgery, vs considerations to start chemo. Admission and Anticipated Discharge Date Admission Date: August 15, 2019 Subjective feeling pretty good today, ate liquids without difficulty no pain/etc. seems to be eating well. after thinking about it she would like to go home to her home rather than living with family for EGD/EUS and hopefully stenting tomorrow updated son/DIL as well - answered all questions to the best of my ability Review of Systems Review of Systems: All systems reviewed & are unremarkable except as noted in HPI & below Physical Exam Physical Exam: gen aao pleasant nad. heent nc at mmm. breathing unlabored no accessory muscles good effort. speech chronically dysarthric, no other neuro deficits. skin no rashes no pallor or icterus Results & Data Results & Data ([facility]) Vital Signs (Past 12 Hours) Vital Signs Temp Pulse Pulse Resp BP Pulse Ox 08/22/19 07:35 46 L 08/22/19 07:07 97.7 F 51 L 18 138/70 95 08/22/19 03:09 97.9 F 52 L 19 162/79 H 94 PG Care Time/CCT Total # of Minutes Spent Total Time Spent with Patient: Total time spent is greater than 50% in coordination of care (as documented) at patient's floor/unit and/or counseling patient: Coding Level of Care Code 01765 Subseq Hosp Care Lvl 3 Diagnoses Esophageal abnormality K22.9 Malnutrition E46 DEJUAN (acute kidney injury) N17.9 Hypercalcemia E83.52 Current smoker F17.200 DVT prophylaxis Z29.9 Discharge planning issues Z02.9
[2019-08-22] MEDS: ENOXAPARIN INJ 40 MG/0.4 ML SYR SQ SCH (20:12)
[2019-08-23 06:52] LABS: BUN Creatinine Ratio 14.5 (10-20); Calcium 8.8 mg/dl (8.5-10.1); Creatinine Clr Calc Pharmacy 56.8 ml/min; Est GFR (African American) 98.7; Est GFR (Non-African American) 85.2; Potassium 3.5 mmol/L (3.5-5.1)
[2019-08-23] MEDS: PANTOprazole 40 MG TAB PO SCH (09:41)
--- NOTE | 2019-08-23 11:57 | History & Physical Bridge Note ---
Date of Service August 23, 2019 History & Physical Bridge Note I have examined the patient, reviewed the History & Physical and in the interval since the performance of the History & Physical I have noted the following changes of clinical significance: no changes noted. We are planning for EGD with EUS today and possible esophageal stent placement. We have discussed the risks to include bleeding, infection perforation, pain, aspiration, and esophageal stent migration/pain.
--- NOTE | 2019-08-23 12:05 | Anesthesiology Consultation ---
Date of Service August 23, 2019 Assessment & Plan Chart Review Chart Review: Acceptable Risk for Surgery Consults Requested none History Surgery Operation Date: 08/18/19 09:00 Proposed Procedures p Esophagogastroduodenoscopy Dr. Alona Sage MD Operation Date: 08/23/19 12:00 Proposed Procedures p Endoscopic Ultrasonography Tamica Spring Height/Weight Height: 5 ft Weight: 56.1 kg Allergies Allergy/AdvReac Type Severity Reaction Status Date / Time doxycycline Allergy Unknown dizziness Verified 08/15/19 15:23 Medications Home Medications Medication Instructions Recorded Confirmed Last Taken cholecalciferol (vitamin D3) 75 3,000 units PO QAM 04/23/18 08/15/19 Unknown mcg (3,000 unit) tablet calcium carbonate [Calcium 500] 1 tab PO QAM 05/15/18 08/15/19 Unknown acetaminophen 500 mg tablet 1,000 mg PO TID PRN tab 03/02/19 08/15/19 Unknown fluocinonide 0.05 % topical cream 1 appln TOP BID PRN 03/02/19 08/15/19 Unknown Active Medications Generic Name Dose Route Start Last Admin Trade Name Freq PRN Reason Stop Dose Admin Enoxaparin Sodium 40 mg 08/15/19 21:00 08/22/19 20:12 Lovenox SQ 09/14/19 20:59 40 mg Q24H ANTONIO Administration Morphine Sulfate 2 mg 08/16/19 09:35 08/16/19 16:34 Morphine Sulfate IV 08/30/19 09:34 2 mg Q6H PRN Administration Pain Polyethylene Glycol 17 gm 08/21/19 21:09 08/21/19 23:02 Miralax Powder Packet PO 09/20/19 21:08 17 gm BID PRN Administration Constipation NPO Date Last Intake of Fluids: 08/22/19 Time Last Intake of Fluids: 22:15 Date Last Intake of Solids: 08/22/19 Time Last Intake of Solids: 17:00 Past Medical History Medical History Acute bronchitis Aortic atherosclerosis (Chronic) Arthrosis of multiple sites Bronchitis (05/15/14) Cerebral palsy, unspecified Complex renal cyst (Acute) Contact dermatitis Contact dermatitis (Resolved) COPD (chronic obstructive pulmonary disease) (Chronic) COPD exacerbation Current smoker (Acute) Emphysema of lung (Chronic) Emphysema, unspecified (Acute) Fall Foot contusion Gastroesophageal reflux disease (Acute) Knee contusion Shortness of breath Unspecified essential hypertension (Acute) Upper respiratory infection (Resolved) Vitamin D deficiency (Chronic) Xerotic eczema (Acute) Past Family History Family History Sister Stroke Mother Stroke Other Heart disease Prostate cancer Past Surgical History Surgical History History of cataract surgery History of total hysterectomy with bilateral salpingo-oophorectomy (BSO) Social History Smoking Status: Current every day smoker tobacco type: cigarettes Smoking cigarettes per day: 10 Hx Alcohol Use: No Hx Substance Use: No Physical Exam Vital Signs Last Vital Signs Temp 36.6 C 08/23/19 11:20 Pulse 52 L 08/23/19 11:20 Resp 18 08/23/19 11:20 BP 184/72 H 08/23/19 11:20 Pulse Ox 95 08/23/19 11:20 Testing Laboratory Results 08/19/19 06:24 08/23/19 05:55 Urine Color Yellow 08/15/19 22:26 Urine Appearance Clear (Clear) 08/15/19 22:26 Urine pH 5.0 (4.5-7.5) 08/15/19 22:26 Ur Specific [place] > 1.045 (1.000-1.030) H 08/15/19 22:26 Urine Protein Negative (Negative) 08/15/19 22:26 Urine Glucose (UA) Negative (Negative) 08/15/19 22:26 Urine Ketones 3+ (Negative) H 08/15/19 22:26 Urine Nitrite Negative (Negative) 08/15/19 22:26 Ur Leukocyte Esterase Negative (Negative) 08/15/19 22:26
[2019-08-23] MEDS ORDERED: fentaNYL citrate 100 MCG/2 ML VIAL IV PRN (12:06)
[2019-08-23] MEDS ORDERED: ATROPINE SULFATE 0.1 MG/ML 10ML SYR IV PRN (12:06)
[2019-08-23] MEDS ORDERED: ePHEDrine sulfate 50 MG/ML AMP IV PRN (12:06)
[2019-08-23] MEDS ORDERED: SUCCINYLCHOLINE CHLORIDE 20 MG/ML 10 ML VIAL IV ONE (12:51)
[2019-08-23] MEDS ORDERED: GLYCOPYRROLATE 0.2 MG/ML VIAL IM ONE (12:52)
[2019-08-23] MEDS ORDERED: LIDOCAINE HCL 2% 2 ML VIAL/AMP(20MG/ML) INFIL ONE (12:52)
[2019-08-23] MEDS ORDERED: ROCURONIUM BROMIDE 10 MG/ML 5 ML VIAL IV ONE (12:52)
[2019-08-23] MEDS ORDERED: ePHEDrine sulfate 50 MG/ML SYR IV ONE (12:52)
[2019-08-23] MEDS ORDERED: PROPOFOL IV EMULSION 10 MG/ML 20 ML VIAL IV ONE (12:52)
--- NOTE | 2019-08-23 13:27 | GI REPORT ---
Patient Name: Merly Lares Procedure Date: 08/23/2019 12:28 PM Date of : 1940 Admit Type: Inpatient Age: 78 Gender: Female Attending MD: Pedro Luis Spring DO Procedure: Upper EUS Providers: Pedro Luis Spring DO Referring MD: Marquise Garcia Md, Skyler Miller Md, Daryl Sage MD Indications: Staging of esophageal adenocarcinoma Medicines: General Anesthesia Complications: No immediate complications. Estimated blood loss: Minimal. Estimated Blood Loss: Estimated blood loss was minimal. Procedure: Pre-Anesthesia Assessment: - Prior to the procedure, a History and Physical was performed, and patient medications, allergies and sensitivities were reviewed. The patient's tolerance of previous anesthesia was reviewed. - The risks and benefits of the procedure and the sedation options and risks were discussed with the patient. All questions were answered and informed consent was obtained. - Patient identification and proposed procedure were verified prior to the procedure by the physician, the nurse and the ferry engineer. The procedure was verified in the procedure room. - Pre-procedure physical examination revealed no contraindications to sedation. - ASA Grade Assessment: III - A patient with severe systemic disease. - After reviewing the risks and benefits, the patient was deemed in satisfactory condition to undergo the procedure. - The anesthesia plan was to use general anesthesia. - Immediately prior to administration of medications, the patient was re-assessed for adequacy to receive sedatives. - The heart rate, respiratory rate, oxygen saturations, blood pressure, adequacy of pulmonary ventilation, and response to care were monitored throughout the procedure. - The physical status of the patient was re-assessed after the procedure. After obtaining informed consent, the endoscope was passed under direct vision. Throughout the procedure, the patient's blood pressure, pulse, and oxygen saturations were monitored continuously. The Endosonoscope was introduced through the mouth, and advanced to the second part of duodenum. The upper EUS was accomplished without difficulty. The patient tolerated the procedure well. The Endosonoscope was introduced through the mouth, and advanced to the duodenal bulb. Findings: ENDOSONOGRAPHIC FINDING: : A hypoechoic mass was found in the gastroesophageal junction. The mass was encountered at 30 cm from the incisors and extended to 35 cm. The lesion was partially circumferential (involving 80% of the lumen). The endosonographic borders were well-defined. The mass measured up to 12 mm in thickness. There was sonographic evidence suggesting invasion into the muscularis propria (Layer 4). There was no sign of significant endosonographic abnormality in the ampulla. No masses were identified. There was no sign of significant endosonographic abnormality in the common bile duct. The maximum diameter of the duct was 6 mm. Ducts of normal caliber were identified. There was no sign of significant endosonographic abnormality in the visualized portion of the liver. Homogeneous parenchyma, no pathologic lymphadenopathy and no masses were identified. There was no sign of significant endosonographic abnormality in the entire pancreas. The pancreatic duct measured up to 2 mm in diameter. No masses, no cysts, the pancreatic duct was thin in caliber. No lymphadenopathy seen today. There was no sign of significant endosonographic abnormality in the left adrenal gland. No adrenal gland enlargement was identified. No lymph nodes were seen during endosonographic examination in the aortopulmonary region (level 5), in the subcarinal mediastinum (level 7), in the gastrohepatic ligament (level 18), in the celiac region (level 20) and in the bj hepatis region. Impression: - A mass was found in the gastroesophageal junction. A tissue diagnosis was obtained prior to this exam. This is of adenocarcinoma. This was staged T2 N1 Mx by endosonographic criteria and prior LN seen on recent CT scan. - There was no sign of significant pathology in the ampulla. - There was no sign of significant pathology in the common bile duct. - There was no evidence of significant pathology in the visualized portion of the liver. - There was no sign of significant pathology in the entire pancreas. - Endosonographic images of the left adrenal gland were unremarkable. - No specimens collected. Recommendation: - Perform an upper GI endoscopy today. - Perform a PET (positron emission tomography) scan at appointment to be scheduled. Pedro Luis Spring D.O. Pedro Luis Spring, 08/23/2019 1:27:18 PM This report has been signed electronically. Note Initiated On: 08/23/2019 12:28 PM Number of Addenda: 0 I attest to the content of the Intraoperative Record and orders documented therein, exceptions below {[id number]}
--- NOTE | 2019-08-23 13:34 | Post Operative Brief Note ---
Immediate Post Op Note v1 Date of Surgery August 23, 2019 Pre & Post Diagnosis Operation Date: 08/23/19 12:00 Pre-Op Diagnosis: Esophageal adenocarcinoma Post-Op Diagnosis: Esophageal adenocarcinoma I identified the patient and participated in the time-out.: Yes Procedure Operation Date: 08/18/19 09:00 Operation Date: 08/23/19 12:00 Actual Procedures p Endoscopic Ultrasonography Upper(Not Applicable) p Upper endoscopy with esophageal stent placement - Pedro Luis Spring Surgeon Pedro Luis Spring Donor Specialist none Estimated Blood Loss 0 Findings Consistent with Post-Op Diagnosis
--- NOTE | 2019-08-23 13:41 | Communication Note ---
Date of Service: August 23, 2019 Patient underwent EGD with EUS today. Findings: 5 cm partially obstructing mass of the esophagus T2N1 by EUS / CT imaging Partially covered esophageal stent placed. Recommendations: Protonix 40 mg per day PET scan as OP to be scheduled Medical oncology / thoracic surgery consultation Diet recommendations: Please see information sheet for patient 1)Clears for 24 hours 2)Full liquids for 3 days 3)Smooth /pureed foods for 3 days 4)advance as tolerated thereafter (avoid breads, leafy vegtables, chicken/steak/pork)
--- NOTE | 2019-08-23 13:51 | Fluoroscopy Report ---
[place] ERCP biliary ductal CLINICAL HISTORY: ERCP - STENT COMPARISON STUDY: CT of the abdomen and pelvis August 15, 2019. FLUOROSCOPY TIME: 18 seconds. FLUOROSCOPIC IMAGES: 3 FINDINGS: Fluoroscopy was provided during placement of a distal esophageal stent. Stent appears appro priately positioned. There are no unexpected radiopaque foreign bodies. IMPRESSION: Fluoroscopy provided for distal esophageal stent placement. ACT 112: Negative or not required by law. Electronically signed by: Arthur Stubbs M.D. 08/23/2019 1:50 PM
--- NOTE | 2019-08-23 13:54 | GI REPORT ---
Patient Name: Merly Lares Procedure Date: 08/23/2019 12:20 PM Date of : 1940 Admit Type: Inpatient Age: 78 Gender: Female Attending MD: Pedro Luis Spring DO Procedure: Upper GI endoscopy Providers: Pedro Luis Spring DO Referring MD: Marquise Garcia Md, Daryl Sage MD, Skyler Miller Md Indications: Dysphagia, Follow-up of malignant esophageal adenocarcinoma, Stent insertion Medicines: General Anesthesia Complications: No immediate complications. Estimated blood loss: Minimal. Estimated Blood Loss: Estimated blood loss was minimal. Procedure: Pre-Anesthesia Assessment: - Prior to the procedure, a History and Physical was performed, and patient medications, allergies and sensitivities were reviewed. The patient's tolerance of previous anesthesia was reviewed. - The risks and benefits of the procedure and the sedation options and risks were discussed with the patient. All questions were answered and informed consent was obtained. - Patient identification and proposed procedure were verified prior to the procedure by the physician, the nurse and the market research interviewer. The procedure was verified in the procedure room. - Pre-procedure physical examination revealed no contraindications to sedation. - ASA Grade Assessment: III - A patient with severe systemic disease. - After reviewing the risks and benefits, the patient was deemed in satisfactory condition to undergo the procedure. - The anesthesia plan was to use general anesthesia. - Immediately prior to administration of medications, the patient was re-assessed for adequacy to receive sedatives. - The heart rate, respiratory rate, oxygen saturations, blood pressure, adequacy of pulmonary ventilation, and response to care were monitored throughout the procedure. - The physical status of the patient was re-assessed after the procedure. After obtaining informed consent, the endoscope was passed under direct vision. Throughout the procedure, the patient's blood pressure, pulse, and oxygen saturations were monitored continuously. The Endoscope was introduced through the mouth, and advanced to the third part of duodenum. The upper GI endoscopy was accomplished without difficulty. The patient tolerated the procedure well. Findings: Food and several pills were found in the middle third of the esophagus. Removal of food was accomplished, the pills were gently pushed into the stomach. Estimated blood loss: none. A large, fungating mass with bleeding was found in the lower third of the esophagus, 30 to 35 cm from the incisors. The mass was partially obstructing and partially circumferential (involving two thirds of the lumen circumference). This was stented with a 20 mm x 10 cm Evolution partially covered controlled-release stent (REF NATHAN 20-25-10-E, Lot [id number]) with a 25 mm flange under fluoroscopic and endoscopic guidance, proximal margin at 27-8 cm and distal margin at 37 cm from the incisors. The entire examined stomach was normal. The examined duodenum was normal. Impression: - Food in the middle third of the esophagus. Removal was successful. - Partially obstructing, malignant esophageal tumor was found in the lower third of the esophagus. Prosthesis placed. - Normal stomach. - Normal examined duodenum. Recommendation: - [facility]. - Please follow the diet as outlined in her chart. - Please give a copy of the stent diet to the patient. Pedro Luis Spring D.O. Pedro Luis Spring, 08/23/2019 1:53:59 PM This report has been signed electronically. Note Initiated On: 08/23/2019 12:20 PM Number of Addenda: 0 I attest to the content of the Intraoperative Record and orders documented therein, exceptions below {[id number]}
--- NOTE | 2019-08-23 14:00 | Anesthesiology Progress Note ---
Date of Service August 23, 2019 Anesthesia Post Procedure Vital Signs Vital Signs: Temp Pulse Pulse Pulse Pulse Resp BP 08/23/19 13:55 36.3 C L 80 19 148/75 H 08/23/19 13:45 80 12 166/80 H 08/23/19 13:37 36.0 C L 83 19 188/94 H 08/23/19 11:20 36.6 C 52 L 18 184/72 H 08/23/19 09:48 49 L 08/23/19 07:10 36.8 C 50 L 18 151/51 H 08/23/19 04:02 37 C 51 L 20 08/23/19 00:05 49 L 08/22/19 23:33 36.9 C 53 L 17 148/70 H 08/22/19 20:03 36.9 C 56 L 18 08/22/19 15:47 37.2 C 52 L 18 BP Pulse Ox 08/23/19 13:55 93 08/23/19 13:45 100 08/23/19 13:37 100 08/23/19 11:20 95 08/23/19 09:48 08/23/19 07:10 96 08/23/19 04:02 138/55 L 95 08/23/19 00:05 08/22/19 23:33 92 08/22/19 20:03 152/79 H 91 08/22/19 15:47 141/66 H 94 Transfer of Care Handoff Completed per policy Notes Mental Status: alert / awake / arousable and participated in evaluation Patient Amnestic to Procedure: Yes Nausea / Vomiting: adequately controlled Pain: adequately controlled Airway Patency, RR, SpO2: stable & adequate BP & HR: stable & adequate Hydration State: stable & adequate Anesthetic Complications: no major complications apparent
--- NOTE | 2019-08-23 14:20 | Hospitalist Progress Note ---
Date of Service August 23, 2019 Assessment & Plan (1) Esophageal abnormality: Adenocarcinoma. -PET scheduled for adam as outpt -information sent to cancer center and discussed case w Dr. zamora -thoracic surgery input appreciated - will ask for cardio and pulm evals if she appears to be surgical candidate as it relates to the cancer (ie if node benign, PET not concerning beyond esophagus) - for now await more information - Underwent EGD/EUS today with stent placement. Clear liquids x 24 hours, then full liquids for 3 days, smooth /pureed foods for 3 days, then advance as tolerated thereafter (avoid breads, leafy vegtables, chicken/steak/pork). - Daily PPI (2) Malnutrition: Appears to be acute moderate to severe protein/calorie as evidenced by 15- 20lbs weight loss in short order. -caused both by cancer itself but also (probably moreso) by dysphagia from the malignancy - Doing pretty well overall on liquid diet. (3) DEJUAN (acute kidney injury): improved. subsisting on PO intake alone hypokalemia - improved w repletion (4) Hypercalcemia: highly likely to have been dehydration and calcium supplementation - fortunately has normalized. certainly w presumed new dx cancer this would be concerning - BUT no evidence of bony mets. (5) Current smoker: obviously hasn't smoked since admission, encouraged to stop (6) DVT prophylaxis: lovenox (7) Discharge planning issues: EUS and stenting today - Hopefully home tomorrow if tolerating full diet Admission and Anticipated Discharge Date Admission Date: August 15, 2019 Subjective No major pain today. Overall, feeling well. Ready for her procedure. Reports no fevers/chills, chest pain, shortness of breath, abdominal pain, nausea, or vomiting. Physical Exam Constitutional: WD/WN, vitals as above Eyes: EOM intact bilaterally; no conjunctival abnormality ENMT: external ear and nose normal, oropharynx normal Neck: trachea midline, no thyromegaly normal visual inspection Respiratory: normal respiratory effort, lungs clear to auscultation no respiratory distress Cardiovascular: RRR, no murmur, no edema Gastrointestinal (Abdomen): Inspection/Auscultation: abdomen normal to inspection; abdomen not distended Musculoskeletal: no cyanosis or clubbing, extremities motor strength 5/5 Skin: no rashes, warm and dry Neurologic: moves all extremities and awake Speech / Cognition: + abnormal speech Psychiatric: Orientation: alert, oriented to person and cooperative Results & Data Results & Data ([facility]) Vital Signs (Past 12 Hours) Vital Signs Temp Pulse Pulse Pulse Pulse Resp BP 08/23/19 14:05 61 15 157/71 H 08/23/19 13:55 36.3 C L 80 19 148/75 H 08/23/19 13:45 80 12 166/80 H 08/23/19 13:37 36.0 C L 83 19 188/94 H 08/23/19 11:20 36.6 C 52 L 18 184/72 H 08/23/19 09:48 49 L 08/23/19 07:10 36.8 C 50 L 18 151/51 H 08/23/19 04:02 37 C 51 L 20 BP Pulse Ox 08/23/19 14:05 99 08/23/19 13:55 93 08/23/19 13:45 100 08/23/19 13:37 100 08/23/19 11:20 95 08/23/19 09:48 08/23/19 07:10 96 08/23/19 04:02 138/55 L 95 PG Care Time/CCT Total # of Minutes Spent Total Time Spent with Patient: Total time spent is greater than 50% in coordination of care (as documented) at patient's floor/unit and/or counseling patient: Coding Level of Care Code 62686 Subseq Hosp Care Lvl 3 Diagnoses Esophageal abnormality K22.9 Malnutrition E46 DEJUAN (acute kidney injury) N17.9 Hypercalcemia E83.52 Current smoker F17.200 DVT prophylaxis Z29.9 Discharge planning issues Z02.9
[2019-08-23] MEDS: ENOXAPARIN INJ 40 MG/0.4 ML SYR SQ SCH (20:15)
[2019-08-24] MEDS ORDERED: ACETAMINOPHEN 325 MG TAB PO PRN (02:59)
[2019-08-24 06:47] LABS: Hematocrit (blood only) 33.6 % (37-47); Hemoglobin 11.1 g/dL (12.0-16.0); Mean Corpuscular Hemoglobin 30.2 pg (25-34); Mean Corpuscular Volume 91.6 fL (80-100); Mean Platelet Volume 10.4 fL (7.4-10.4); Platelet Count 189 K/uL (130-400); RDW Coefficient of Variation 14.1 % (11.5-14.5); RDW Standard Deviation 46.7 fL (36.4-46.3); Red Blood Count 3.67 M/uL (4.2-5.4); White Blood Count 4.77 K/uL (4.8-10.8)
[2019-08-24 07:17] LABS: BUN Creatinine Ratio 11.2 (10-20); Calcium 8.7 mg/dl (8.5-10.1); Creatinine Clr Calc Pharmacy 46.1 ml/min; Est GFR (African American) 85.9; Est GFR (Non-African American) 74.1; Potassium 3.8 mmol/L (3.5-5.1)
--- NOTE | 2019-08-30 23:17 | Discharge Summary ---
Date of Service August 24, 2019 Admission HPI Per Admitting Provider This is an 78-year-old female with past medical history of cerebral palsy, GERD, and COPD that presents today complaining of dysphasia over the past 2 weeks. Patient has some mild baseline dysarthria but is otherwise good historian. Patient's main complaint is that she has been having difficulty with oral intake over the past 2 weeks. She is able to swallow but feels the food gets stuck in her lower epigastric area. She is describing some "mucus "that comes back up but has had no nausea or vomiting. She describes the pain is more of a burning, reflux type pain. She has difficulties both solids and liquids. She tells me she has tried different things but has run into the same problem. She feels this is getting slowly worse, in the past 2 days she has not been able to keep anything down at all. She has had no abdominal pain, fever, chills. She denies any weight loss. She also denies passing any blood either above or below. CT scan of the abdomen as noted below, has significant amount of food debris in the lower esophagus with with concern for mass versus a stricture. Principal Diagnosis Esophageal abnormality Discharge Exam Constitutional: WD/WN, vitals as above Eyes: EOM intact bilaterally; no conjunctival abnormality ENMT: external ear and nose normal, oropharynx normal Neck: trachea midline, no thyromegaly normal visual inspection Respiratory: normal respiratory effort, lungs clear to auscultation no respiratory distress Cardiovascular: RRR, no murmur, no edema Gastrointestinal (Abdomen): Inspection/Auscultation: abdomen normal to inspection; abdomen not distended Musculoskeletal: no cyanosis or clubbing, extremities motor strength 5/5 Skin: no rashes, warm and dry Neurologic: moves all extremities and awake Speech / Cognition: + abnormal speech Psychiatric: Orientation: alert, oriented to person and cooperative Discharge Data Allergies Allergy/AdvReac Type Severity Reaction Status Date / Time doxycycline Allergy Unknown dizziness Verified 08/15/19 15:23 Consultations 08/15/19 16:33 ED Decision to Admit Stat 08/15/19 18:23 Consult Gastroenterology Routine 08/19/19 18:33 Consult Thoracic Surgery Routine Procedures Performed Operation Date: 08/18/19 09:00 Actual Procedures p EGD Biopsy Cytology - Daryl Sage MD Operation Date: 08/23/19 12:00 Actual Procedures p Endoscopic Ultrasonography Upper(Not Applicable) - Pedro Luis Spring Ordered Studies 08/15/19 15:22 CT abd pelvis IV con only Stat 08/17/19 FL barium swallow Routine 08/19/19 11:30 CT chest w con Routine 08/23/19 FL ERCP biliary ductal Routine 08/23/19 11:59 US upper EUS PACS images Routine Hospital Course (1) Esophageal abnormality: Adenocarcinoma. -PET scheduled for adam as outpt -information sent to cancer center and discussed case w Dr. lester -thoracic surgery input appreciated - will ask for cardio and pulm evals if she appears to be surgical candidate as it relates to the cancer (ie if node benign, PET not concerning beyond esophagus) - for now await more information - Underwent EGD/EUS with stent placement. Clear liquids x 24 hours, then full liquids for 3 days, smooth /pureed foods for 3 days, then advance as tolerated thereafter (avoid breads, leafy vegtables, chicken/steak/pork). - Daily PPI (2) Malnutrition: Appears to be acute moderate to severe protein/calorie as evidenced by 15- 20lbs weight loss in short order. -caused both by cancer itself but also (probably moreso) by dysphagia from the malignancy - Doing pretty well overall on liquid diet. (3) DEJUAN (acute kidney injury): improved. subsisting on PO intake alone hypokalemia - improved w repletion (4) Hypercalcemia: highly likely to have been dehydration and calcium supplementation - fortunately has normalized. certainly w presumed new dx cancer this would be concerning - BUT no evidence of bony mets. (5) Current smoker: obviously hasn't smoked since admission, encouraged to stop (6) DVT prophylaxis: lovenox (7) Discharge planning issues: Total Time Total Time Spent Total Time Spent (In Minutes): 35 Total Time Includes: Examination of the Patient, Discharge Planning and Medication Reconciliation Discharge Plan Discharge Items Patient Disposition: Home - Self-Care Reason For Visit: ESOPHAGEAL STRICTURE HYPERCA Discharge Diagnosis: Esophageal stricture Activity: Resume your previous activity Non-emergency contact: Primary Care Provider Call non-emergency contact if: you have any medication questions Follow-up/Referrals: [facility] PET Scan [Other] - 09/01/19 8:00 am (Please, come to the [facility], located in the rear of [facility], for a PET scan on FridayAugust 31 at 8:00 am. You will park BEHIND the hospital in [address] which is directly across from the entrance you will use at the [facility]. A nurse from the imaging department will call you one or two days before the scan to review specific instructions. If you have any questions, call the nurse navigator at [phone].) Katy Neri PA-C [Primary Care Provider] - (Office will be contacting patient for follow up appts due to Covid-19.) Rich Lester DO [Physician] - (Please, follow up at [facility] with Dr. Rich Lester or Dr. Jostin Sharma. *You have an appointment with Dr. Lester on 09/08/2019 at 1:30PM This office is located in the rear of [facility] in the [facility]. You will park BEHIND the hospital in [address] which is directly across from the [facility]. If you have any questions, call the office at [phone].) Diet: Full liquid Addtl Attending Provider Instructions: Diet instructions: Full liquids for 3 days, smooth /pureed foods for 3 days, then advance as tolerated thereafter (avoid breads, leafy vegtables, chicken/steak/pork). Please, follow up at [facility] with Dr. Rich Lester or Dr. Jostin Sharma. *You have an appointment with Dr. Lester on 09/08/2019 at 1:30PM This office is located in the rear of [facility] in the [facility]. You will park BEHIND the hospital in [address] which is directly across from the [facility]. If you have any questions, call the office at [phone]. Coronavirus disease 2019 (COVID-19) is a virus that causes a respiratory illness. It is caused by a coronavirus called 2019 novel coronavirus (2019- nCoV). There are many types of coronavirus. Coronaviruses are a very common cause of bronchitis. They may sometimes cause lung infection(pneumonia). Symptoms can range from mild to severe respiratory illness. These viruses are also foundin some animals. COVID-19 was first found in people in [facility], in late 2018. In 2020, several cases of COVID-19 have been confirmed in the [place] Public health officials are working to find the source. How the virus spreads is not yet fully known. It may be spread through droplets of fluid that a person coughs or sneezes into the air. It may be spread if you touch a surface with virus on it, such as a handle or object, and then touch your mouth. What are the symptoms of COVID-19? Some people have no symptoms or mild symptoms. Symptoms may appear 2 to 14 days after contact with the virus. Symptoms can include: Fever Coughing Trouble breathing What are possible complications from COVID-19? In many cases, this virus can cause infection (pneumonia) in both lungs. In some cases, this can cause . How is COVID-19 diagnosed? Your healthcare provider will ask about your symptoms. He or she will also ask about your recent travel and contact with sick people. Testing for the virus is only done through the CDC. If yourhealthcare provider thinks you may have COVID- 19, he or she will work with your local health department and the CDC on testing. Follow all instructions from your healthcare provider. COVID-19 is diagnosed by: Nasal and throat swab. A cotton-tipped swab is wiped inside your nose or throat. This is done to check for viruses in your nasal mucus. Sputum culture. A small sample of mucus coughed from your lungs (sputum) is collected if you have a cough. It is checked for the virus. How is COVID-19 treated? There is currently no medicine to treat the virus. Treatment is done to help your body while it fights the virus. This is known as supportive care. Suppo rtive care may include: Pain medicine. These include acetaminophen and ibuprofen. They are used to help ease pain and reduce fever. Bed rest. This helps your body fight the illness. For severe illness, you may need to stay in the hospital. Care during severe illness may include: IV (intravenous) fluids.These are given through a vein to help keep your body hydrated. Oxygen. Supplemental oxygen or ventilation with a breathing machine (ventilator) may be given. This is done to keep enough oxygen in your body. Are you at risk for COVID-19? If youve been to a place where people have been sick with this virus, you are at risk for infection. You are at risk if you: Recently traveled to an affected area Had contact with a sick person who recently traveled to this area Had contact with a person who was diagnosed with COVID-19 How can COVID-19 be prevented? There is no vaccine yet. The best prevention is to not have contact with the virus. The CDC advises that people should not travel to areas where there are COVID-19 outbreaks right now for any reason that is not urgent. To help prevent spreading the infection, wash your hands often, or use an alcohol-basedhand candy counter clerk. If you are in an area with COVID-19: Wash your hands often. Or use an alcohol-based hand candy counter clerk often. Only touch your eyes, nose, or mouth with clean hands. Dont have contact with people who are sick. Follow local instructions about being in public. For example, you may be told to not use public transport for a period of time. Stay away from markets that have live or animals. Wash your hands after touching any animals. Don't touch animals that may be sick. Dont share eating or drinking tools with sick people. Dont kiss someone who is sick. Clean surfaces often with disinfectant. If you were in an area with COVID-19 in the last 14 days: Call your healthcare provider. He or she can talk with local health staff to see what action may be needed. Follow all instructions from your provider. Take your temperature every morning and evening for at least 14 days. This is to check for fever. Keep a record of the readings. Keep watch for symptoms of the virus. Tell your provider right away if you have symptoms. If you were in an area with COVID-19 and have a fever or other symptoms: Dont panic. Keep in mind that other illnesses can cause similar symptoms. Stay away from work, school, and public places. Limit physical contact with family members. Don't kiss anyone or share eating or drinking utensils. Clean surfaces you touch with disinfectant. This is to help prevent the virus from spreading. Call your healthcare provider. Explain that you have been exposed to COVID-19 and have symptoms. Do this before going to any hospital. Wait for instructions. Keep in mind that healthcare staff may wear protective equipment such as masks, gowns, gloves, and eye protection. You may be put in a separate room. This is to prevent the possible virus from spreading. Tell the healthcare staff about recent travel. This includes local travel on public transport. Staff may need to find other people you have been in contact with. Follow all instructions the healthcare staff give you. If you have been diagnosed with COVID-19 Follow all instructions from your healthcare provider. Dont leave your home, except to get medical care. Call your healthcare providers office before going. They can prepare and give you instructions. This will help prevent the virus from spreading. Dont go to work, school, or public areas. Dont use public transport or taxis. Stay away from other people in your home. Have them wear face masks around you. Dont share household items or food. Wear a face mask if you can. This includes at home or in a medical facility. Cover your face with a tissue when you cough or sneeze. Throw the tissue away. Wash your hands. Wash your hands often. Caregivers should: Follow all instructions from healthcare staff. Wear a face mask and protective clothing as advised. Wash hands often. Keep track of the sick persons symptoms. Clean surfaces, fabrics, and laundry thoroughly. Keep other people away from the sick person. When to call your healthcare provider Call your healthcare provider: If youve recently traveled and have symptoms If you have been diagnosed with COVID-19 and your symptoms are worse To learn more To find out more about COVID-19, visit the CDC website at www.cdc.gov/coronavirus/2019-ncov/index.html. [employer] [address] [place] [address], [place] [address]. All rights reserved. This information is not intended as a substitute for professional medical care. Always follow your healthcare professional's instructions. This information has been adapted from [employer] Pending Studies at Discharge: No Stand-Alone Forms: My [facility], Smoking Cessation Medications and DC Order Prescriptions: Continued cholecalciferol (vitamin D3) 3,000 unit tablet 3,000 units PO QAM RF: 0 fluocinonide 0.05 % cream 1 appln TOP BID PRN (Reason: DRY SKIN AREAS) RF: 0 acetaminophen [Tylenol Extra Strength] 500 mg tablet 1,000 mg PO TID PRN (Reason: Pain) RF: 0 calcium carbonate [Calcium 500] 500 mg calcium (1,250 mg) Tablet 1 tab PO QAM RF: 0 No Action nystatin-triamcinolone 100,000-0.1 unit/g-% cream 1 appln TOP BID Qty: 30 RF: 1 acetaminophen-codeine 120 mg-12 mg /5 mL (5 mL) solution 5 ml PO Q8H PRN (Reason: pain) Qty: 200 RF: 0 Discharge Orders: Discharge Order (Routine); Ordered 08/24/19 Ordered By: Chucky Menchaca Admission Data Admit Date/Time: 08/15/19 17:12 Attending Provider: Chucky Menchaca Admit Provider: Agus Romo Primary Care Provider: Katy Neri Other Providers: Daryl Sage ; Crystal Green ; Kiki Morales Joseph D. ; Pedro Luis Spring ; Toni Monaco Other Interventions: Discharge Summary Assessment (RN) Last Done: 08/24/19 15:51 DC Date/Time DO NOT enter until pt leaves facility: 08/24/19 17:03 Coding Level of Care Code D/C Day Management >30 mins Diagnoses Esophageal abnormality K22.9 Malnutrition E46 DEJUAN (acute kidney injury) N17.9 Hypercalcemia E83.52 Current smoker F17.200 DVT prophylaxis Z29.9 Discharge planning issues Z02.9
--- NOTE | 2019-08-31 14:30 | Coding Query ---
CODING QUERY To promote full compliance with coding requirements relating to patient care, provider participation is requested in all cases of beam sealer uncertainty. Please assist us with the question(s) below: Coding Question(s): "Moderate-severe malnutrition" is documented. This could be interpreted in multiple ways. For example: malnutrition that has progressed from moderate to severe or malnutrition that is at least moderate but has not yet reached severe. Could you please clarify the meaning of this? Physician's Response(s): ( ) Moderate-severe malnutrition meaning malnutrition that has progressed from moderate to severe (x ) Moderate-severe malnutrition meaning at least moderate but has not yet reached severe ( ) Moderate-severe malnutrition meaning (please specify if other meaning was meant) Thank you Soraya Harrell Principal Diagnosis: "that condition established after study, to be chiefly responsible for occasioning the admission of the patient to the hospital for care." Co-Existing Principal Diagnosis: "when two or more diagnoses equally meet the criteria for principal diagnosis as determined by the circumstances of admission, diagnostic work up, and/or therapy provided, and the Alphabetic Index, Tabular List, or another coding guideline does not provide sequencing direction, any one of the diagnoses may be sequenced first." "When the physician has documented what appears to be a current diagnosis in the body of the record, but has not included the diagnosis in the final diagnostic statement, the physician should be asked whether the diagnosis should be added." (Source Coding [facility] 2 QTR90. p3-4) [facility]
== END 2019-08-24 17:03 | disposition home or self-care (01) | DRG 375 ==
LOC: ED 14:53 → 2N 17:12 → SUATTDRO 17:12 → 2N 17:41